=== PATIENT | female | born 1955 | race Caucasian/White ===

== ENCOUNTER 2020-12-31 07:16 | Outpatient (CLI) | payer MEDICARE, SELFPAY ==
[2020-12-31 18:26] LABS: Basophils Absolute Auto 0.1 K/mm3 (0.0-0.1); Basophils Percent Auto 0.6 % (0.2-1.2); Eosinophils Absolute Auto 0.5 K/mm3 (0-0.3); Eosinophils Percent Auto 4.9 % (0-4.4); Hematocrit 41.5 % (37.0-47.0); Hemoglobin 13.1 g/dL (12.0-15.0); Immature Granulocyte Absolute 0.06 K/mm3 (0.00-0.031); Immature Granulocyte Percent A 0.6 % (0-0.5); Lymphocytes Absolute Auto 3.38 K/mm3 (0.9-3.2); Lymphocytes Percent Auto 31.6 % (18.3-44.2); Mean Corpuscular HGB Conc 31.6 g/dl (32-36); Mean Corpuscular Volume 101.5 fl (80-100); Mean Platelet Volume 10.6 fl (7.4-10.4); Monocytes Absolute Auto 0.8 K/mm3 (0.1-0.6); Monocytes Percent Auto 7.1 % (2.6-8.5); Neutrophils Absolute Auto 5.9 K/mm3 (1.3-6.7); Neutrophils Percent Auto 55.2 % (45.5-73.1); Platelet Count Result 436 k/mm3 (150-375); Red Blood Count 4.09 M/mm3 (4.2-5.4); Red Cell Distribution Width 13.5 % (11.5-14.5); White Blood Count 10.7 K/mm3 (4.5-10.0)
[2020-12-31 19:18] LABS: Alanine Aminotransferase 25 U/L (4-35); Albumin Level 3.4 g/dL (3.5-5.1); Alkaline Phosphatase 130 U/L (38-126); Amylase 67 U/L (30-110); Anion Gap 6 mmol/L (8-16); Aspartate Amino Transferase 23 U/L (14-36); Bilirubin,Total < 0.1 mg/dL (0.2-1.3); Blood Urea Nitrogen 13 mg/dL (7-17); Calcium 8.9 mg/dL (8.4-10.2); Carbon Dioxide 27 mmol/L (22-30); Chloride 101 mmol/L (98-107); Cholesterol 195 mg/dL (0-200); Estimated Glomerular Filt Rate > 60; Glucose 100 mg/dL (65-110); HDL Direct 53 mg/dL; Lipase 107 U/L (23-300); Potassium 4.2 mmol/L (3.4-5.0); Sodium 134 mmol/L (137-145); Triglycerides 212 mg/dL (<150)
[2020-12-31 19:29] LABS: LDL Cholesterol Direct 89 mg/dL
== END 2020-12-31 07:17 | disposition home or self-care (01) ==
PROVIDERS: PCP Family Medicine; Visit Provider Family Medicine
DX: K86.1 Other chronic pancreatitis (principal); M79.7 Fibromyalgia; F17.210 Nicotine dependence, cigarettes, uncomplicated
CPT/HCPCS: 36415; 80053; 80061; 82150; 83690; 85025

== ENCOUNTER → 2021-01-09 13:29 | Outpatient (CLI) | payer MEDICARE, SELFPAY ==
--- NOTE | ~2021-01-09 | MM_ITS ---
EXAMINATION: MM screening nahum BI w amaris HISTORY: Screening TECHNIQUE: Craniocaudal and mediolateral oblique 3-D tomosynthesis images were obtained and synthetic 2-D images were generated. CAD analysis was submitted and interpreted. COMPARISON: No prior mammogram is available for comparison at this institution. BREAST PARENCHYMAL COMPOSITION: Breast composed of scattered areas of fibroglandular density. FINDINGS: There is a mass in the upper outer quadrant of the right breast posteriorly. There is a lef t periareolar mass containing calcifications. There are no suspicious areas of architectural distorti on. IMPRESSION: 1. Bilateral breast masses. 2. Additional spot compression and mediolateral views with possible follow-up breast ultrasound recom mended. BI-RADS CATEGORY 0 - INCOMPLETE STUDY, NEED ADDITIONAL IMAGING EVALUATION. Reviewed, dictated and finalized at location A. IMPRESSION: 1. Bilateral breast masses. 2. Additional spot compression and mediolateral views with possible follow-up b reast ultrasound recommended. BI-RADS CATEGORY 0 - INCOMPLETE STUDY, NEED ADDITIONAL IMAGING EVALUATION.
--- NOTE | ~2021-01-09 | CT_ITS ---
EXAMINATION: CT abdomen wo con DATE: 01/09/2021 13:51 INDICATION: Other chronic pancreatitis. TECHNIQUE: Computed tomography (CT) of the abdomen was performed without intravenous contrast. Automa norman exposure control and iterative reconstruction technique were employed. The dose-length product wa s 558.23 mGy-cm. COMPARISON: None. FINDINGS: The visualized portions of the lung bases demonstrate mild atelectasis. There are pneumatoc eles in right lower lobe and lingula. No pleural effusion. The heart size is normal. No pericardial e ffusion. There is moderate intrahepatic biliary duct dilatation. There are changes of cholecystectomy . The common duct is dilated to 14 mm. The pancreas, adrenal glands, and kidneys are normal. There ar e no dilated loops of bowel. There are surgical clips in the periappendiceal region. There is mild me senteric lymphadenopathy on the right. No pleural effusion. There is severe lumbar spondylosis. IMPRESSION: 1. Moderate intrahepatic and extrahepatic biliary duct dilatation status post cholecystectomy. 2. Mild mesenteric lymphadenopathy, likely reactive. Reviewed, dictated and finalized at location A. IMPRESSION: 1. Moderate intrahepatic and extrahepatic biliary duct dilatation status post c holecystectomy. 2. Mild mesenteric lymphadenopathy, likely reactive.
== END ==
PROVIDERS: PCP Family Medicine; Visit Provider Family Medicine
DX: Z12.31 Encounter for screening mammogram for malignant neoplasm of breast (principal); R92.8 Other abnormal and inconclusive findings on diagnostic imaging of breast; K86.1 Other chronic pancreatitis; R59.9 Enlarged lymph nodes, unspecified; Z12.39 Encounter for other screening for malignant neoplasm of breast; Z90.49 Acquired absence of other specified parts of digestive tract
CPT/HCPCS: 74150; 77063; 77067

== ENCOUNTER 2021-01-30 09:04 | Outpatient (CLI) | payer MEDICARE, SELFPAY ==
[2021-01-30 19:11] LABS: Anion Gap 8 mmol/L (8-16); Blood Urea Nitrogen 14 mg/dL (7-17); Calcium 9.2 mg/dL (8.4-10.2); Carbon Dioxide 27 mmol/L (22-30); Chloride 105 mmol/L (98-107); Estimated Glomerular Filt Rate > 60; Glucose 120 mg/dL (65-110); Potassium 4.6 mmol/L (3.4-5.0); Sodium 140 mmol/L (137-145)
== END 2021-01-30 09:05 | disposition home or self-care (01) ==
LOC: ANHBWCLAB 09:06
PROVIDERS: PCP Family Medicine; Visit Provider Family Medicine
DX: E87.1 Hypo-osmolality and hyponatremia (principal)
CPT/HCPCS: 36415; 80048

== ENCOUNTER → 2021-02-24 08:07 | Outpatient (CLI) | payer MEDICARE, SELFPAY ==
--- NOTE | ~2021-02-24 | MMUS_ITS ---
EXAMINATION: MM diagnostic nahum LT w amaris, US breast LT limited HISTORY: 9 mm subcutaneous mass with calcifications reported in lower inner quadrant of left breast TECHNIQUE: Additional 3-D tomosynthesis images of the left breast were performed and synthetic 2-D im ages were generated. Magnification views of the left breast. CAD analysis was submitted and interpret ed. High resolution lower inner quadrant left breast ultrasound was performed. COMPARISON: 01/09/2021, 11/23/2019, 05/25/2018 02/24/2017 bilateral digital screening mammogram examinati ons FINDINGS: MAMMOGRAPHIC FINDINGS: An approximately 5 x 9 mm circumscribed opacity with calcifications is confirmed anteriorly in the rubio bcutaneous area of the lower inner quadrant near the nipple. ULTRASOUND: A subcutaneous 5.4 x 9.8 mm parallel oval circumscribed mass with calcifications is confirmed at 8:00 0.5 cm from the nipple. This has increased in size compared to prior examinations dating back to 7. Biopsy is therefore recommended. IMPRESSION: 1. Increased size of circumscribed mass with calcifications at 8:00 0.5 cm from the nipple, currently measuring up to 9.8 mm 2. Ultrasound-guided biopsy is recommended BI-RADS category 4, suspicious findings. Dr. Riggs telephoned the report and ultrasound guided biopsy recommendation on 02/24/2021 [address] Tong Riggs's voicemail. Reviewed, dictated and finalized at location A. IMPRESSION: 1. Increased size of circumscribed mass with calcifications at 8:00 0.5 cm from the nipple, currently measuring up to 9.8 mm 2. Ultrasound-guided biopsy is recommended BI-RADS category 4, suspicious findings. Dr. Riggs telephoned the report and ultrasound guided biopsy recommendation on at [address] Tong Riggs's voicemail.
== END ==
PROVIDERS: PCP Family Medicine; Visit Provider Family Medicine
DX: N63.20 Unspecified lump in the left breast, unspecified quadrant (principal); R92.8 Other abnormal and inconclusive findings on diagnostic imaging of breast
CPT/HCPCS: 76642; 77061; 77065; G0279

== ENCOUNTER 2021-03-12 08:42 | Outpatient (CLI) | payer MEDICARE, SELFPAY ==
--- NOTE | ~2021-03-12 | MMUS_ITS ---
US breast biopsy LT w image, MM post biopsy invasive LT EXAMINATION: US GUIDED NEEDLE BIOPSY WITH VAC UUM ASSISTANCE DATE: 03/12/2021 10:25 CDT INDICATION: Left breast mass. Ultrasound-guided core biopsy is requested to evaluate for malignancy. TECHNIQUE AND FINDINGS: The risks and potential benefits of the procedure were discussed with the patient, and written inform ed consent was obtained. After sterile preparation of the left breast, 1% lidocaine was utilized for local anesthesia. 1% lidocaine with epinephrine was used for deep anesthesia. A 10G vacuum-assisted biopsy gun needle was advanced through to the outer edge of the region of inter est from a superior approach utilizing sonographic guidance. A total of 4 tissue core samples were o btained through the lesion. An Inrad tissue marker clip was then placed at the biopsy site. Hemostas is was achieved. The patient tolerated procedure well and there was no evidence of immediate complication. The patien t was given verbal instructions partly is from the department. Left breast mammograms to document t issue marker clip placement. The tissue samples were submitted to surgical pathology for histologic a nalysis. IMPRESSION: 1. Successful ultrasound-guided vacuum-assisted biopsy of left breast mass with tissue marker placem ent. Please refer to pathology report for histologic analysis. Reviewed, dictated and finalized at location A. IMPRESSION: 1. Successful ultrasound-guided vacuum-assisted biopsy of left breast mass wit h tissue marker placement. Please refer to pathology report for histologic anal ysis.
== END 2021-03-12 08:43 | disposition home or self-care (01) ==
LOC: ANHIMG 08:45
PROVIDERS: PCP Family Medicine; Visit Provider Surgery
DX: R92.8 Other abnormal and inconclusive findings on diagnostic imaging of breast (principal); C50.912 Malignant neoplasm of unspecified site of left female breast; Z17.0 Estrogen receptor positive status [ER+]
CPT/HCPCS: 19083; 88305; 88342; A4648

== ENCOUNTER 2021-11-17 09:35 | Outpatient (CLI) | payer MEDICARE, SELFPAY ==
--- NOTE | ~2021-11-17 | XR_ITS ---
XR foot LT standing 2V DATE: 11/17/2021 11:37 INDICATION: Polyarticular arthritis TECHNIQUE: AP and lateral views COMPARISON: None FINDINGS: Prominent hallux valgus and bunion deformity. There is mild osteophyte is at the first meta tarsophalangeal joint. There is osteoarthritic change at some of the tarsometatarsal and interphalang eal joints. Mild plantar and posterior calcaneal enthesopathy. Osteopenia. IMPRESSION: Plantar and posterior calcaneal enthesopathy Polyarticular osteoarthritis Osteopenia. Reviewed, dictated and finalized at location A.
--- NOTE | ~2021-11-17 | XR_ITS ---
XR lumbar spine min 4V DATE: 11/17/2021 11:37 INDICATION: Back pain TECHNIQUE: AP, lateral, bilateral oblique views and coned lateral lumbosacral view COMPARISON: None FINDINGS: There is osteopenia. There is degenerative spurring of the lower thoracic spine. There is prominent degenerative change at the apophyseal joints in the mid and lower lumbar area with associated 2.4 mm minimal grade 1 anterolisthesis at L3-4 and 6.7 mm grade 1 anterolisthesis at L4-5 . There is severe degenerative disc disease at L4-5 and L5-S1. The sacroiliac joints are intact. Surgical clips, right upper quadrant, likely due to cholecystectomy. Surgical clips are noted in the right lower quadrant. IMPRESSION: Degenerative changes apophyseal joints with grade 1 anterolisthesis at L3-4 and L4-5 Severe degenerative disc disease at L4-5 and L5-S1 Reviewed, dictated and finalized at location A.
--- NOTE | ~2021-11-17 | XR_ITS ---
EXAMINATION: HAND-MALATHI ARTHRITIS 3+VIEWS DATE: 11/17/2021 11:37 INDICATION: Polyarticular osteoarthritis TECHNIQUE: Posteroanterior, lateral, and oblique views of the left and of the right hands as well as a ballcatchers view of both hands were obtained. COMPARISON: None. FINDINGS: Alignment is normal at both hands. No fracture. Relatively symmetric pattern of polyarticular osteoar thritis. This is severe with central erosions with gullwing configuration at the distal interphalange al joints of both hands. Additional severe osteoarthritis at the bilateral first carpometacarpal join ts. Mild to moderate osteoarthritis at the remaining joints in both hands. There are few degenerative subchondral cysts with thin sclerotic margins and most prominent at the right lunate and at the base of the first metacarpals. Soft tissues are unremarkable. IMPRESSION: 1. Polyarticular osteoarthritis including severe osteoarthritis at the bilateral first carpometacarpa l joints and erosive osteoarthritis at the distal interphalangeal joints of both hands. Reviewed, dictated and finalized at location B. IMPRESSION: 1. Polyarticular osteoarthritis including severe osteoarthritis at the bilatera l first carpometacarpal joints and erosive osteoarthritis at the distal interph alangeal joints of both hands.
--- NOTE | ~2021-11-17 | XR_ITS ---
XR sacroiliac joints min 3V DATE: 11/17/2021 11:37 INDICATION: Arthritis. Pain. TECHNIQUE: AP and bilateral oblique views COMPARISON: None FINDINGS: There is osteopenia. There is normal alignment at the pubic symphysis and sacroiliac joints . No fracture or dislocation is detected. No erosive change or ankylosis. IMPRESSION: Osteopenia Reviewed, dictated and finalized at [facility]. Reviewed, dictated and finalized at location A. IMPRESSION: Osteopenia
--- NOTE | ~2021-11-17 | XR_ITS ---
XR foot RT standing 2V DATE: 11/17/2021 11:37 INDICATION: Polyarthritis. Foot pain. TECHNIQUE: AP and lateral views COMPARISON: None FINDINGS: There is osteopenia. There is hallux valgus and bunion deformity. There is mild osteophyte is at the first metatarsophalan geal joint and more prominent osteoarthritic change of the tarsometatarsal, metatarsophalangeal and s ome interphalangeal joints. No erosive change is noted. There is plantar and posterior calcaneal enthesopathy. IMPRESSION: Polyarticular osteoarthritis Hallux valgus and bunion deformity Plantar and posterior calcaneal enthesopathy Reviewed, dictated and finalized at location A.
--- NOTE | ~2021-11-17 | XR_ITS ---
XR knee LT min 4V DATE: 11/17/2021 11:37 INDICATION: Left knee pain. Probably osteoarthritis TECHNIQUE: [place] and standing AP, PA and lateral views COMPARISON: None FINDINGS: There is osteopenia. No fracture or dislocation, periosteal reaction or bone destruction. N o radiopaque intra-articular loose body or chondrocalcinosis. Joint spaces are relatively preserved. IMPRESSION: Osteopenia Reviewed, dictated and finalized at location A. IMPRESSION: Osteopenia
[2021-11-17 20:44] LABS: Rheumatoid Factor > 120.0 IU/ML (<12)
[2021-11-19 22:21] LABS: Anti Cyclic Citrullinated Pept <16 Units (<20)
[2021-11-22 11:46] LABS: ANCA Screen Negative (Negative); Myeloperoxidase Ab <1.0 AI (<1.0); Proteinase-3 Ab <1.0 AI (<1.0); S cerevisiae Ab (IgA) 6.5 U (<=20.0); S cerevisiae Ab (IgG) 17.2 U (<=20.0)
== END 2021-11-17 09:36 | disposition home or self-care (01) ==
PROVIDERS: PCP Family Medicine; Visit Provider Internal Medicine
DX: M79.7 Fibromyalgia (principal); Z71.89 Other specified counseling; Z79.899 Other long term (current) drug therapy; M19.041 Primary osteoarthritis, right hand; M19.042 Primary osteoarthritis, left hand; M19.071 Primary osteoarthritis, right ankle and foot; M20.11 Hallux valgus (acquired), right foot; M77.31 Calcaneal spur, right foot; M19.072 Primary osteoarthritis, left ankle and foot; M85.872 Other specified disorders of bone density and structure, left ankle and foot; M77.32 Calcaneal spur, left foot; M85.862 Other specified disorders of bone density and structure, left lower leg; M53.3 Sacrococcygeal disorders, not elsewhere classified; M85.88 Other specified disorders of bone density and structure, other site; M51.36 Other intervertebral disc degeneration, lumbar region; M51.37 Other intervertebral disc degeneration, lumbosacral region
CPT/HCPCS: 36415; 72110; 72202; 73130; 73564; 73620; 86036; 86038; 86200; 86430; 86671

== ENCOUNTER → 2022-07-30 08:34 | Outpatient (CLI) | payer MEDICARE, SELFPAY ==
--- NOTE | ~2022-07-30 | XR_ITS ---
Cervical Spine: AP, lateral, open-mouth views Clinical History: Pain Findings: The normal lordotic curve is maintained. No acute fracture or subluxation evident. There is posterior hardware at the left side of the C4, C6, and C7 levels. There is severe degenerative disc narrowing throughout the cervical spine, with anterior marginal osteophytes present. Mild facet joint degenerative changes are present throughout the cervical spine. Pre-vertebral soft tissues are unrem arkable. Impression: No acute fracture or subluxation evident. Consider CT for more sensitive evaluation as indicated. Left posterior orthopedic hardware at the C4, C6, and C7 levels. Correlate with surgical history. Advanced degenerative spondylosis, as above. Reviewed, dictated and finalized at [facility]. Impression: No acute fracture or subluxation evident. Consider CT for more sensitive evalua tion as indicated. Left posterior orthopedic hardware at the C4, C6, and C7 levels. Correlate with surgical history. Advanced degenerative spondylosis, as above.
--- NOTE | ~2022-07-30 | CT_ITS ---
Non-contrast Head CT History: Head trauma Technique: Axial non-contrast imaging of the brain was performed. Dose reduction technique was used on this scan by utilizing automated exposure control and iterative reconstruction technique. The dose -length product (DLP) was 599.57 mGy-cm. Findings: There is no evidence of intracranial hemorrhage, mass lesion, or acute infarct. Brain par enchyma appears normal. The ventricles and subarachnoid spaces are normal in size. The calvarium ap pears normal. The visualized paranasal sinuses and mastoid air cells are clear. Impression: No significant abnormality seen. Reviewed, dictated and finalized at location . Impression: No significant abnormality seen.
== END ==
PROVIDERS: PCP Family Medicine; Visit Provider Family Medicine
DX: S09.90XA Unspecified injury of head, initial encounter (principal); X58.XXXA Exposure to other specified factors, initial encounter; M47.892 Other spondylosis, cervical region
CPT/HCPCS: 70450; 72040

== ENCOUNTER 2023-08-16 08:07 | Outpatient (CLI) | payer MEDICARE, SELFPAY ==
[2023-08-16 21:38] LABS: Alanine Aminotransferase 16 U/L (6-35); Albumin Level 4.1 g/dL (3.5-5.1); Alkaline Phosphatase 45 U/L (38-126); Anion Gap 3 mmol/L (4-12); Aspartate Amino Transferase 50 U/L (14-36); Bilirubin,Total 0.6 mg/dL (0.2-1.3); Blood Urea Nitrogen 12 mg/dL (7-17); Calcium 8.9 mg/dL (8.4-10.2); Carbon Dioxide 29 mmol/L (22-30); Chloride 106 mmol/L (98-107); Cholesterol 158 mg/dL (0-200); Estimated Glomerular Filt Rate > 60; Glucose 96 mg/dL (65-110); HDL Direct 53 mg/dL; Potassium 4.1 mmol/L (3.4-5.0); Sodium 138 mmol/L (137-145); Triglycerides 198 mg/dL (<150)
[2023-08-16 21:49] LABS: LDL Cholesterol Direct 74 mg/dL
== END 2023-08-16 08:08 | disposition home or self-care (01) ==
PROVIDERS: PCP Nurse Practitioner Adult Health; Visit Provider Nurse Practitioner Adult Health
DX: E78.5 Hyperlipidemia, unspecified (principal)
CPT/HCPCS: 36415; 80053; 80061

== ENCOUNTER 2023-08-18 09:53 | Outpatient (CLI) | payer MEDICARE, SELFPAY ==
--- NOTE | ~2023-08-18 | XR_ITS ---
AP and lateral views of the left hip Clinical history: Pain Findings: No acute fracture or dislocation is seen. Osseous alignment is anatomic. There is mild dege nerative change of the left hip joint. Soft tissues are unremarkable. Impression: Mild degenerative change of the left hip joint. Reviewed, dictated and finalized at location . Impression: Mild degenerative change of the left hip joint.
== END 2023-08-18 09:54 | disposition home or self-care (01) ==
LOC: ANHBWCIMG 09:54
PROVIDERS: PCP Nurse Practitioner Adult Health; Visit Provider Nurse Practitioner Adult Health
DX: M25.552 Pain in left hip (principal)
CPT/HCPCS: 73502

== ENCOUNTER 2024-10-18 08:15 | Outpatient (CLI) | payer MEDICARE, SELFPAY ==
--- NOTE | ~2024-10-18 | XR_ITS ---
Thoracic spine: Clinical Indication: Back pain AP and lateral views were performed. No fracture is seen. There is normal alignment of the vertebrae. There is multilevel moderate to adv anced degenerative disc narrowing throughout the thoracic spine, especially at the mid thoracic spine . Paravertebral soft tissues appear normal. Impression: Multilevel moderate to advanced degenerative disc narrowing throughout the thoracic spine, especially the mid thoracic spine. Reviewed, dictated and finalized at location . Impression: Multilevel moderate to advanced degenerative disc narrowing throughout the thor acic spine, especially the mid thoracic spine.
--- NOTE | ~2024-10-18 | XR_ITS ---
XR abdomen/kub 1V 10/18/2024 08:38 INDICATION: Chronic back pain TECHNIQUE: KUB COMPARISON: None FINDINGS: Bowel gas pattern is normal. Moderate colonic fecal loading. There is no evidence of free a ir, mass, organomegaly, ascites or obstruction. No abnormal calculi are seen. The bones appear inta ct. There is a left total hip arthroplasty. There are cholecystectomy clips. There are surgical clips in the right pelvis. IMPRESSION: 1: No acute abdominal abnormality identified. Reviewed, dictated and finalized at location B.
--- NOTE | ~2024-10-18 | XR_ITS ---
Lumbosacral Spine: AP and lateral views Clinical History: Pain COMPARISON: 11/17/2021 Findings: No fracture evident. There is 8 mm anterolisthesis of L3 over L4. There is 10 mm anterolist hesis of L4 over L5. There is severe degenerative disc narrowing at L4-L5 and L5-S1. There is severe facet arthropathy of the lumbar spine. The sacroiliac joints are normally outlined. Impression: Severe degenerative spondylosis, especially from L3 through S1, as above. 8 mm anterolisthesis of L3 over L4. 10 mm anterolisthesis of L4 over L5. Reviewed, dictated and finalized at location M. Impression: Severe degenerative spondylosis, especially from L3 through S1, as above. 8 mm anterolisthesis of L3 over L4. 10 mm anterolisthesis of L4 over L5.
--- OUTSIDE RECORDS SUMMARY | 2024-10-18 08:29 | XMS_ITS | Referral Summary ---
Author Organization [facility] Address [address] [place] [address] Care Team Providers Care Braille Translator Name Role Phone Tong Riggs MD Primary Care Provider [phone] Matthieu Fortune MD PhD Unavailable Leona Suazo MD Unavailable Kunal Ramos MD Unavailable Carlos Crook MD Unavailable [phone] Encounters Date Type Department Care Team Description 10/17/2024 1:00 PM CDT Office Visit [facility] Gastroenterology [address] [place] [address] Medical Office Building [address] [place] [address] Geraldine Lock PA Heartburn (Primary Dx); Gastroesophageal reflux disease, unspecified whether esophagitis present; Chronic gastric ulcer without hemorrhage and without perforation; Constipation, unspecified constipation type 10/08/2024 Results Follow-Up [facility] [address] [place] [address] Eloise Valentin, IDA Urine culture Urine, clean voided 10/07/2024 8:32 AM CDT - 10/07/2024 11:59 PM CDT Hospital Encounter [address] [id number] UTI symptoms Discharge Disposition: Discharge to home or self care 10/07/2024 8:30 AM CDT Office Visit [facility] [address] [place] [address] Jerri Juarez NP UTI symptoms (Primary Dx) from Last 3 Months Allergies Active Allergy Reactions Criticality Noted Date Comments Iodinated Contrast Media Anaphylaxis High 11/09/2023 Iodine Anaphylaxis High 06/29/2019 Penicillins Anaphylaxis High 01/15/2021 Sulfa (Sulfonamide Antibiotics) Hives Medium 12/2020 Medications ondansetron ODT (ZOFRAN-ODT) 8 mg disintegrating tablet DISSOLVE ONE TABLET ON TONGUE THREE TIMES A DAY NEEDED 12/25/[address] (PROTONIX) 40 mg EC tablet Take 1 tablet (40 mg total) by mouth 2 (two) times a day 11/04/19 21 Active denosumab (PROLIA) 60 mg/mL syringe every 6 (six) months 12/09/19 22 Active famotidine (PEPCID) 20 mg tablet TAKE 1 TABLET BY MOUTH AT MIDNIGHT FOR REFLUX TYPE SYMPTOMS 03/09/20 22 Active bisacodyL (DULCOLAX) 10 mg suppository Insert 1 suppository (10 mg total) into the rectum daily as needed for constipation Active tamoxifen (NOLVADEX) 20 mg tablet Take 1 tablet (20 mg total) by mouth daily Active prochlorperazine (COMPAZINE) 10 mg tablet Take 1 tablet (10 mg total) by mouth every 8 (eight) hours as needed for nausea or vomiting Active atorvastatin (LIPITOR) 10 mg tablet Take 1 tablet (10 mg total) by mouth nightly Active pregabalin (LYRICA) 75 mg capsule Take 1 capsule (75 mg total) by mouth 3 (three) times a day Active multivitamin tablet Take 1 tablet by mouth daily Active ascorbic acid (vitamin C) 1,000 mg tablet Take 1 tablet (1,000 mg total) by mouth daily Active calcium-magnesium- zinc 333-133-5 mg tablet Take 1 tablet by mouth 2 (two) times a day Active cholecalciferol (VITAMIN D-3) 5,000 unit tablet Take 1 tablet (5,000 Units total) by mouth daily Active vitamins A,C,E-bbsb-xlwoiv (ICAPS) 4,296 mcg-226 mg-90 mg capsule Take 1 capsule by mouth daily Active senna-docusate (PERICOLACE) 8.6-50 mg Take 1 tablet by mouth 2 (two) times a day as needed for constipation 60 tablet 2 02/16/20 24 Active adalimumab (Humira,CF,) 20 mg/0.2 mL syringe kit 08/31/19 25 Active methotrexate 2.5 mg tablet TAKE 3 (THREE) TABLETS BY MOUTH EVERY 7 DAYS Active predniSONE (DELTASONE) 10 mg tablet TAKE 2 (TWO) TABLETS BY MOUTH ONCE DAILY FOR 7 DAYS, THEN 1 (ONE) TABLET ONCE DAILY FOR 7 DAYS. 08/03/19 25 Active predniSONE (DELTASONE) 20 mg tablet 40 MG (2 X 20 MG) ORALLY DAILY 10/14/19 25 Active predniSONE (DELTASONE) 5 mg tablet 09/23/19 25 Active tiZANidine (ZANAFLEX) 4 mg tablet Take 1 tablet (4 mg total) by mouth 2 (two) times a day as needed 11/01/19 21 025 Discontin ued(Thera py completed ) acidophilus-pectin , citrus 100 million cell-10 mg capsule Take 1 capsule by mouth daily 025 Discontin ued(Thera py completed ) oxyCODONE-acetamin ophen (PERCOCET) 5-325 mg per tablet Take 1-2 tablets by mouth every 4 (four) hours as needed for pain 40 tablet 02/16/20 24 025 Discontin ued(Thera py completed ) Active Problems Problem Noted Date Diagnosed Date Chronic gastric ulcer withou t hemorrhage and without perforation 04/18/2024 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 04/10/2024 Gastroesophageal reflux disease 01/18/2024 Anemia 01/18/2024 Vitamin D deficiency, unspecified 06/09/2022 Personal history of colonic polyps 03/24/2022 Overview (03/24/2022): Added automatically from request for surgery [id number] Nausea 03/24/2022 Overview (03/25/2022): Added automatically from request for surgery [id number] Heartburn 03/24/2022 Overview (03/25/2022): Added automatically from request for surgery [id number] Osteopenia 11/28/2021 Malignant neoplasm of lower- inner quadrant of left breast in female, estrogen receptor positive 07/30/2021 Cancer Staging:Pathologic stage from 07/30/2021:Stage IA(pT1b, pN0(sn), cM0, G2, ER+, IL+, HER2-, Oncotype DX score: 25) - Signed by Matthieu Fortune MD PhD on 07/30/2021 Pathologic stage from 11/23/2022: pN1a, cM0, ER+, IL+, HER2- - Signed by Matthieu Fortune MD PhD on 05/27/2023 Adenomatous polyp of ascending colon 02/14/2021 Overview (02/14/2021): Added automatically from request for surgery [id number] Encounter for screening colonoscopy 01/21/2021 Overview (01/21/2021): Added automatically from request for surgery [id number] Acute pancreatitis without infection or necrosis 01/15/2021 Overview (01/15/2021): Added automatically from request for surgery [id number] Resolved Problems Problem Noted Date Diagnosed Date Resolved Date Primary osteoarthritis of left hip 02/07/2024 04/10/2024 Social History Tobacco Use Types Packs/Day Years Used Date Smoking Tobacco: Former Cigarettes 0.3 49 Q uit: 01/09/2024 Smokeless Tobacco: Never Tobacco Cessation:Counseling Given: Not Answered AUDIT-C Answer Date Recorded Q1: How often do you have a drink containing alcohol? Never 06/13/2024 Q2: How many drinks containi ng alcohol do you have on a typical day when you are drinking? Patient does not drink Q3: How often do you have si x or more drinks on one occasion? Never 06/13/2024 Personal Safety Answer Date Recorded Have you ever been in or are you currently in a harmful physical or emotional relationship or is someone making you feel afraid or unsafe? Denies 06/15/2024 Comments No Sex and Gender Information Value Date Recorded Sex Assigned at Not on file Legal Sex Female 2:25 PM CDT Gender Identity Female 03/12/2021 12:38 PM CDT Sexual Orientation Straight 07/21/2021 2: 12 PM CDT Last Filed Vital Signs Vital Sign Reading Time Taken Comments Blood Pressure 131/83 10/17/2024 1:02 PM CDT Pulse 97 10/17/2024 1:02 PM CDT Temperature 36.8 C (98.2 F) 10/17/2024 1:02 PM CDT Respiratory Rate 18 10/07/2024 8:25 AM CDT Oxygen Saturation 95% 10/17/2024 1:02 PM CDT Inhaled Oxygen Concentration - - Weight 96.2 kg (212 lb) 10/17/2024 1:02 PM CDT Height 167.6 cm (5' 6) 10/17/2024 1:02 PM CDT Body Mass Index 34.22 10/17/2024 1:02 PM CDT Plan of Treatment Not on file Medical Devices Implanted Type Area Space Operations Device Identifier Shelf Expiration Date Model / Serial / Lot [employer] Shell Acetabular Hip Porous 3 Hole Coated Emphasys 50mm Titanium [id number] - [id number] Implanted:Qty: 1 on 02/16/2024 by Carlos Crook MD at [facility] Left: Hip [employer] [id number] 12/07/2033 [id number] / / [id number] [employer] Liner Acetabular Hip Standard Emphasys Aox 33y06ve Polyethylene [id number] - [id number] Implanted:Qty: 1 on 02/16/2024 by Carlos Crook MD at [facility] Left: Hip [employer] [id number] 12/07/2028 [id number] / / [id number] [employer] Actis 105mm Collar Hip 5 High Offset Stem Femoral [id number] - [id number] Implanted:Qty: 1 on 02/16/2024 by Carlos Crook MD at [facility] Left: Hip [employer] [id number] 11/06/2033 [id number] / / [id number] [employer] Articul/[place]ilton 36mm Cementless Hip +1.5mm 04/22 Taper Head Femoral Latex Free [id number] - [id number] Implanted:Qty: 1 on 02/16/2024 by Carlos Crook MD at [facility] Left: Hip [employer] [id number] 10/07/2028 [id number] / / [id number] Procedures Procedure Name Priority Date/Time Associated Diagnosis Comments POCT URINALYSIS DIPSTICK Routine 10/07/2024 8:39 AM CDT UTI symptoms URINE CULTURE Routine 10/07/2024 8:32 AM CDT UTI symptoms COLONOSCOPY 03/30/2022 1:45 PM [employer]ODUCT [employer]NAG[employer] from Last 3 Months or Most Recently Relevant to Health Maintenance Results * POCT urinalysis dipstick (10/07/2024 8:39 AM CDT) Color, Urine, POC Yellow Clarity, ur, POC Clear Clear Glucose, ur, POC Negative Negative Bilirubin, ur, POC Negative Negative Ketones, ur, POC Negative Negative Specific Ortley, POC 1.005 1.003 - 1.030 Blood, ur, POC Negative Negative pH, ur, POC 6.0 5.0 - 8.0 Protein, ur, POC Negative Negative Urobilinogen, urine, POC 0.2 0.2 - 1.0 mg/dL Nitrite, ur, POC Negative Negative Leukocytes, ur, POC Negative Negative Lot Number [id number] Urine 10/07/2024 8:39 AM CDT Jerri Juarez PLAN NURSE POINT OF CARE TEST BARTOLOME ALMEIDA Final Result * Urine culture Urine, clean voided (10/07/2024 8:32 AM CDT) Report Final Report: Less than 100,000 colonies/mL (clinically insignificant growth based on current clinical standards) Comment:Testing performed by : [facility], [address] [facility], [place]., [address] Organism (CLINICALLY INSIGNIFICANT GROWTH ADITYA Urine, clean voided 10/07/2024 8:32 AM CDT 10/07/2024 6:23 PM CDT Narrative ADITYA - 10/08/2024 7:25 PM CDT Testing performed by [facility] ([phone]) us Jerri Hassan Larry PLAN NURSE LAB MICROBIOLOGY - GENE RAL ORDERABLES Final Result ADITYA [address] Department of Laboratories [place], [place] [id number] * COLONOSCOPY (03/30/2022 1:45 PM PRODUCT MANAGEMENT INTERNSHIP) Anatomical Region Laterality Modality Other Narrative Procedure Note Yeyo Hu MD - 03/30/2022 1:45 PM CST ENDOSCOPY LAB Patient Name: Latanya Dangelo Procedure Date: 03/30/2022 1:45 PM Admit Type: Outpatient Room: [facility] Date of : 1955 Instrument Name: [id number] Gender: Female Note Status: Finalized Procedure: Colonoscopy Indications: High risk colon cancer surveillance: Personalhistory of colonic polyps Providers: Yeyo Hu M.D. Referring MD: Tong Riggs M.D. Medicines: Monitored Anesthesia Care Complications: No immediate complications. Estimated Blood Loss: Estimated blood loss: none. Procedure: Pre-Anesthesia Assessment: - The risks and benefits of the procedure and the sedation options and risks were discussed with the patient. All questions were answered and informed consent was obtained. - Immediately prior to administration ofmedications, the patient was re-assessed for adequacy to receive sedatives. The benefits, risks and alternatives of theprocedure and sedation were discussed and informed consentwas obtained. All questions were answered. Please referto the signed informed consent document in the medical record. The scope was passed under direct vision.The Colonoscope was introduced through the anus and advanced to the cecum, identified by appendiceal orifice and ileocecal valve. The colonoscopy was performed without difficulty. The patient tolerated the procedure well. The quality of the bowel preparation was good. The bowel preparation usedwas SUPREP via split dose instruction. Findings: The perianal and digital rectal examinations were normal. A small post polypectomy scar was found in the ascending colon. There was no evidence of the previous polyp. The exam was otherwise without abnormality on direct and retroflexion views. Impression: - Post-polypectomy scar in the ascending colon. - The examination was otherwise normal on directand retroflexion views. - No specimens collected. Recommendation: - Return to referring physician as previously scheduled. - Repeat colonoscopy in 3 years for surveillance. Attending Participation: I personally performed the entire procedure. Electronically signed by Yeyo Hu M.D. Yeyo Hu M.D. 03/30/2022 2:47:08 PM This document was signed electronically. Number of Addenda: 0 Note Initiated On: 03/30/2022 1:45 PM Scope Withdrawal Time: 0 hours 3 minutes 2 seconds Scope In: 2:10:28 PM Scope Out: 2:26:22 PM Yeyo Hu MD ENDOSCOPY PROCEDURES Final Result from Last 3 Months or Most Recently Relevant to Health Maintenance Insurance MEDICARE [facility] MEDICARE SUPPLEMENT MEDICARE COMMERCIAL GENERIC MEDICARE [facility] MEDICARE SUPPLEMENT Advance Directives For more information, please contact: [phone] * Full Code (Latest Code Status on File) Date Activated Date Inactivated Comments 06/15/2024 12:33 PM 06/15/2024 6:55 PM * Full Code Date Activated Date Inactivated Comments 03/23/2024 10:22 AM 03/23/2024 4:23 PM * Full Code Date Activated Date Inactivated Comments 02/16/2024 11:47 AM 02/16/2024 7:47 PM * Full Code Date Activated Date Inactivated Comments 03/30/2022 12:35 PM 03/30/2022 7:18 PM * Full Code Date Activated Date Inactivated Comments 03/17/2021 8:56 AM 03/17/2021 3:05 PM Care Teams Braille Translator Relationship Specialty Start Date End Date Tong Riggs MD PCP - General Family Practice 12/23/20 Matthieu Fortune MD PhD [address] [facility] [place] [address] Radiation Oncologist Radiation Oncology 07/30/21 Leona Suazo MD [address] [facility], [place] [address] Consulting Physician General Surgery 07/30/21 Kunal Ramos MD [address] [address] Referring Physician Internal Medicine 07/30/21 Carlos Crook MD [address] [facility] [address] [address] Surgeon Orthopedic Surgery 02/16/24
--- OUTSIDE RECORDS SUMMARY | 2024-10-18 08:29 | XMS_ITS | Encounter Summary ---
Author Organization [facility] Address [address] [place] [address] Phone Care Team Providers Care Waste Specialist Name Role Phone Tong Riggs MD Primary Care Provider [phone] Matthieu Fortune MD PhD Unavailable Leona Suazo MD Unavailable [phone] Kunal Ramos MD Unavailable Carlos Crook MD Unavailable [phone] Encounter Details Date Type Department Care Team (Late st Contact Info) Description 10/17/2024 1:00 PM CDT Office Visit [facility] G[facility]enterology [address] [place] [address] Medical Office Building [address] [place] [address] Geraldine Lock PA [address] [place] [address] Heartburn (Primary Dx); Gastroesophageal reflux disease, unspecified whether esophagitis present; Chronic gastric ulcer without hemorrhage and without perforation; Constipation, unspecified constipation type Social History Tobacco Use Types Packs/Day Years [...] Orientation Straight 07/21/2021 2: 12 PM CDT documented as of this encounter Last Filed Vital Signs Vital Sign Reading Time Taken Comments Blood Pressure 131/83 10/17/2024 1:02 PM CDT Pulse 97 10/17/2024 1:02 PM CDT Temperature 36.8 C (98.2 F) 10/17/2024 1:02 PM CDT Respiratory Rate - - Oxygen Saturation 95% 10/17/2024 1:02 PM CDT Inhaled Oxygen Concentration - - Weight 96.2 kg (212 lb) 10/17/2024 1:02 PM CDT Height 167.6 cm (5' 6) 10/17/2024 1:02 PM CDT Body Mass Index 34.22 10/17/2024 1:02 PM CDT documented in this encounter Patient Instructions * Patient Instructions* Geraldine Lock PA - 10/17/2024 1:00 PM CDT -You could try taking tammy capsules 500 mg 2-3 times a day as needed. If you tolerate it ok and it helps you can go up to 1000 mg 3 times a day. - You could also try Iberogast which is another herbal supplement. - Try taking the pantoprazole 30 minutes before breakfast and before dinner. If this doesn't help, we will consider switching you to rabeprazole - send us an update in about in a few weeks if you want to do this. - the next step would be to consider repeating the EGD (possibly treating empirically with nystatin), or more likely schedule esophageal manometry with 24-hr pH impedence. documented in this encounter Plan of Treatment Not on file documented as of this encounter Visit Diagnoses Diagnosis Heartburn- Primary Gastroesophageal reflux disease, unspecified whether esophagitis present Chronic gastric ulcer without hemorrhage and without perforation Constipation, unspecified constipation type documented in this encounter Discontinued Medications Medication Sig Discontinue Reason Start Date End Da te acidophilus-pectin, citrus 100 million cell-10 mg capsule Take 1 capsule by mouth daily Therapy completed 10/17/2024 oxyCODONE-acetaminophen (PERCOCET) 5-325 mg per tablet Take 1-2 tablets by mouth every 4 (four) hours as needed for pain Therapy completed 02/16/2024 10/17/2024 tiZANidine (ZANAFLEX) 4 mg tablet Take 1 tablet (4 mg total) by mouth 2 (two) times a day as needed Therapy completed 10/31/2020 10/17/2024 documented as of this encounter Historical Medications * This list may reflect changes made after this encounter. predniSONE (DELTASONE) 5 mg tablet 09/22/2024 predniSONE (DELTASONE) 20 mg tablet 40 MG (2 X 20 MG) ORALLY DAILY 10/13/2024 predniSONE (DELTASONE) 10 mg tablet TAKE 2 (TWO) TABLETS BY MOUTH ONCE DAILY FOR 7 DAYS, THEN 1 (ONE) TABLET ONCE DAILY FOR 7 DAYS. 08/02/2024 methotrexate 2.5 mg tablet TAKE 3 (THREE) TABLETS BY MOUTH EVERY 7 DAYS adalimumab (Humira,CF,) 20 mg/0.2 mL syringe kit 08/30/2024 added in this encounter Care Teams Waste Specialist Relationship Specialty Start Date End Date Tong Riggs MD PCP - General Family Practice 12/23/20 Matthieu Fortune MD PhD [address] [place] [address] Radiation Oncologist Radiation Oncology 07/30/21 Leona Suazo MD [address] [facility], [place] [address] Consulting Physician General Surgery 07/30/21 Kunal Ramos MD [address] [address] Referring Physician Internal Medicine 07/30/21 Carlos Crook MD [address] [facility] [address] [place] [place] [address] Surgeon Orthopedic Surgery 02/16/24 documented as of this encounter
--- OUTSIDE RECORDS SUMMARY | 2024-10-18 08:29 | XMS_ITS | Clinical Summary ---
Author Organization [facility] Address [address] [place] [address] Care Team Providers Care Scroll Saw Operator Name Role Phone Tong Riggs MD Primary Care Provider [phone] Matthieu Fortune MD PhD Unavailable Leona Suazo MD Unavailable Kunal Ramos MD Unavailable Carlos Crook MD Unavailable Allergies Active Allergy Reactions Criticality Noted Date [...] Units total) by mouth daily Active vitamins A,C,Q-cqli-eeodkw (ICAPS) 4,296 mcg-226 mg-90 mg capsule Take [...] (03/24/2022): Added automatically from request for surgery [id number] Nausea 03/24/2022 Overview (03/25/2022): Added automatically from request for surgery [id number] Heartburn 03/24/2022 Overview (03/25/2022): Added automatically from request for surgery [id number] Osteopenia 11/28/2021 Malignant neoplasm of lower- inner quadrant of left breast in female, estrogen receptor positive 07/30/2021 Cancer Staging:Pathologic stage from 07/30/2021:Stage IA(pT1b, pN0(sn), cM0, G2, ER+, OH+, HER2-, Oncotype DX score: 25) - Signed by Matthieu Fortune MD PhD on 07/30/2021 Pathologic stage from 11/23/2022: pN1a, cM0, ER+, OH+, HER2- - Signed by Matthieu Fortune MD PhD on 05/27/2023 Adenomatous polyp of ascending colon 02/14/2021 Overview (02/14/2021): Added automatically from request for surgery [id number] Encounter for screening colonoscopy 01/21/2021 Overview (01/21/2021): Added automatically from request for surgery [id number] Acute pancreatitis without infection or necrosis 01/15/2021 Overview (01/15/2021): Added automatically from request for surgery [id number] Resolved Problems Problem Noted Date Diagnosed Date Resolved Date Primary osteoarthritis of left hip 02/07/2024 04/10/2024 Encounters Date Type Department Care Team Description 10/17/2024 1:00 PM CDT Office Visit [facility] Gastroenterology [facility] Medical Office Building [address] [place] [address] Geraldine Lock PA Heartburn (Primary Dx); Gastroesophageal reflux disease, unspecified whether esophagitis present; Chronic gastric ulcer without hemorrhage and without perforation; Constipation, unspecified constipation type 10/08/2024 Results Follow-Up [facility] [place] [address] [place] [address] Eloise Valentin NP Urine culture Urine, clean voided 10/07/2024 8:32 AM CDT - 10/07/2024 11:59 PM CDT Hospital Encounter [address] [address] UTI symptoms Discharge Disposition: Discharge to home or self care 10/07/2024 8:30 AM CDT Office Visit [facility] Medical [facility] [place] [address] [place] [address] Jerri Juarez NP UTI symptoms (Primary Dx) from Last 3 Months Surgical History Surgery Date Site/Laterality Comments UPPER GASTROINTESTINAL ENDOSCOPY COLONOSCOPY APPENDECTOMY 1982 CHOLECYSTECTOMY 1982 OOPHERECTOMY Right SALPINGECTOMY Left LAMINOPLASTY C3 to C8 BREAST BIOPSY BREAST LUMPECTOMY Left HYSTERECTOMY 1992 BUNIONECTOMY Bilateral CATARACT EXTRACTION Bilateral TOTAL HIP ARTHROPLASTY 02/16/2024 Left JOINT REPLACEMENT 02/16/2024 left hip SPINE SURGERY [id number] CATARACT EXTRACTION [id number] Medical History Medical History Date Comments Stress fracture Left foot GERD (gastroesophageal reflux disease) [id number] Cataract [id number] Pancreatitis 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 lower- inner quadrant of left breast in female, estrogen receptor positive (HCC) 07/30/2021 History of radiation therapy Gastroparesis Fibromyalgia Osteoarthritis Spinal stenosis PONV (postoperative nausea and vomiting) High triglycerides Breast CA (HCC) left Anemia Chronic constipation Multiple gastric ulcers Cholelithiasis Osteoporosis [id number] Family History Medical History Relation Name Comments Cancer Brother 1 Afshin Marrufo Melanoma Brother 1 Afshin Marrufo Hypertension Brother 2 Mika Marrufo Arthritis Father Steve Marrufo Cancer Father Steve Marrufo Heart attack Father Steve Marrufo Lung cancer Father Steve Marrufo Breast cancer Maternal Great-Grandmother Arthritis Mother Mary Marrufo Atrial fibrillation Mother Mary Marrufo cause o f Bladder Cancer Mother Mary Marrufo primary Breast cancer Mother Mary Marrufo primary Cancer Mother Mary Marrufo Hypertension Mother Mary Marrufo Rectal cancer Mother Mary Marrufo 2009 - primar y Breast cancer Paternal Grandmother Relation Name Status Comments Brother 1 Afshin Marrufo Brother 2 Mika Marrufo Alive Father Steve Marrufo Maternal Great-Grandmother Mother Mary Marrufo Paternal Grandmother Social History Tobacco Use Types Packs/Day Years [...] Orientation Straight 07/21/2021 2: 12 PM CDT Obstetrics History Para Term AB IAB SAB Ectopic Multiple Livin g Live Births 0 Last Filed Vital Signs Vital Sign Reading [...] 10/17/2024 1:02 PM CDT Plan of Treatment Health Maintenance Due Date Last Done Comments Depression Screening 1955 Hepatitis C Screening 1955 DTaP/Tdap/Td Vaccine (1 - Tdap) 1965 Hepatitis B Screening 02/04/1972 Well Visit 65+ 2019 Zoster Vaccine (1 of 2) 03/27/2021 01/30/2021 Pneumococcal vaccine 65+ (2 of 2 - PCV) 01/30/2022 01/30/2021 Covid-19 Vaccine (2023-2 5 season) 2024 08/07/2021, 02/17/2021, 07/13/2020, Additional history exists Breast Cancer Screening-Mammogram 11/21/2024 11/22/2023, 11/22/2023, 10/12/2022, Additional history exists Influenza Vaccine (Season Ended) 2025 Osteoporosis Screening-Bone Density Scan 01/08/2025 01/08/2023, 01/08/2023, 06/30/2021, Additional history exists Fall Risk Assessment 06/15/2025 06/15/2024, 02/07/20 24 Colon Cancer Screening-Colonoscopy 03/30/2032 03/30/2022, 03/17/2021, 02/12/2021, Additional history exists Medical Devices Implanted Type Area Body Artist Device Identifier Shelf Expiration Date Model / Serial / Lot [employer] Shell Acetabular Hip Porous 3 Hole Coated Emphasys 50mm Titanium [id number] - [id number] Implanted:Qty: 1 on 02/16/2024 by Carlos Crook MD at [facility] Left: Hip [employer] Inc [id number] 12/07/2033 [id number] / / [id number] [employer] Liner Acetabular Hip Standard Emphasys Aox [id number] Polyethylene [id number] - [id number] Implanted:Qty: 1 on 02/16/2024 by Carlos Crook MD at [facility] Left: Hip [employer] [id number] 12/07/2028 [id number] / / [id number] [employer] Actis 105mm Collar Hip 5 High Offset Stem Femoral [id number] - [id number] Implanted:Qty: 1 on 02/16/2024 by Carlos Crook MD at [facility] Left: Hip [employer] [id number] 11/06/2033 [id number] / / [id number] [employer] Articul/Wilton 36mm Cementless Hip +1.5mm 12/14 Taper Head Femoral Latex Free [id number] - [id number] Implanted:Qty: 1 on 02/16/2024 by Carlos Crook MD at [facility] Left: Hip [employer] [id number] 10/07/2028 [id number] / / [id number] Procedures Procedure Name Priority Date/Time Associated Diagnosis Comments POCT URINALYSIS DIPSTICK Routine 10/07/2024 8:39 AM CDT UTI symptoms URINE CULTURE Routine 10/07/2024 8:32 AM CDT UTI symptoms COLONOSCOPY 03/30/2022 1:45 PM COMPUTER LANGUAGE CODER from Last 3 Months or Most Recently Relevant to Health Maintenance Results * POCT urinalysis dipstick (10/07/2024 8:39 AM CDT) Color, Urine, POC Yellow Clarity, ur, POC Clear Clear Glucose, ur, POC Negative Negative Bilirubin, ur, POC Negative Negative Ketones, ur, POC Negative Negative Specific [place], POC 1.005 1.003 - 1.030 Blood, ur, POC Negative Negative pH, ur, POC 6.0 5.0 - 8.0 Protein, ur, POC Negative Negative Urobilinogen, urine, POC 0.2 0.2 - 1.0 mg/dL Nitrite, ur, POC Negative Negative Leukocytes, ur, POC Negative Negative Lot Number [id number] Urine 10/07/2024 8:39 AM CDT Jerri Juarez NP POINT OF CARE TEST BARTOLOME ALMEIDA Final Result * Urine culture Urine, clean voided (10/07/2024 8:32 AM CDT) Report Final Report: Less than 100,000 colonies/mL (clinically insignificant growth based on current clinical standards) Comment:Testing performed by : [facility], [address] [place]., [address] Organism (CLINICALLY INSIGNIFICANT GROWTH ADITYA Urine, clean voided 10/07/2024 8:32 AM CDT 10/07/2024 6:23 PM CDT Narrative ADITYA BAGLEY - 10/08/2024 7:25 PM CDT Testing performed by [facility] Microbiology Laboratory ([phone]) Jerri Juarez NP LAB MICROBIOLOGY - GENE RAL ORDERABLES Final Result [facility] [address] Department [place] [address] * COLONOSCOPY (03/30/2022 1:45 PM COMPUTER LANGUAGE CODER) Anatomical Region Laterality Modality Other Narrative Procedure Note Yeyo Hu MD - 03/30/2022 1:45 PM CST ENDOSCOPY LAB Patient Name: Latanya Dangelo Procedure Date: 03/30/2022 1:45 PM Admit Type: Outpatient Room: [facility] 6 Date of : 1955 Instrument Name: -[id number] Gender: Female Note Status: Finalized Procedure: Colonoscopy [...] Most Recently Relevant to Health [place] [address] MEDICARE [facility] MEDICARE SUPPLEMENT MEDICARE COMMERCIAL GENERIC MEDICARE [facility] MEDICARE SUPPLEMENT Advance Directives For more information, please contact: [phone] * Full Code (Latest Code Status on [...] 8:56 AM 03/17/2021 3:05 PM Care Teams Scroll Saw Operator Relationship Specialty Start Date End Date Tong Riggs MD PCP - General Family Practice 12/23/20 Matthieu Fortune MD PhD [address] [place] [address] Radiation Oncologist Radiation Oncology 07/30/21 Leona Suazo MD [address] SURGERY [facility], [place] [address] Consulting Physician General Surgery 07/30/21 Kunal Ramos MD [address] [address] Referring Physician Internal Medicine 07/30/21 Carlos Crook MD [address] [address] Surgeon Orthopedic Surgery 02/16/24
--- OUTSIDE RECORDS SUMMARY | 2024-10-18 08:29 | XMS_ITS | Encounter Summary ---
Author Organization [facility] Address [address] [place] [address] Phone Care Team Providers Care Pumper Gauger Name Role Phone Tong Riggs MD Primary Care Provider [phone] Matthieu Fortune MD PhD Unavailable [phone] Leona Suazo MD Unavailable [phone] Kunal Ramos MD Unavailable Carlos Crook MD Unavailable [phone] Encounter Details Date Type Department Care Team (Late st Contact Info) Description 01/09/2021 Orders Only [facility] Scanning, Provider Social History Tobacco Use Types Packs/Day Years Used Date Smoking Tobacco: Never Assessed Comments Unknown Sex and Gender Information Value Date Recorded Sex Assigned at Not on file Legal Sex Female 2:25 PM CDT Gender Identity Female 03/12/2021 12:38 PM CDT Sexual Orientation Straight 07/21/2021 2: 12 PM CDT documented as of this encounter Plan of Treatment Not on file documented as of this encounter Procedures Procedure Name Priority Date/Time Associated Diagnosis Comments SCAN - RADIOLOGY/IMAGING 01/09/2021 documented in this encounter Results * SCAN - RADIOLOGY/IMAGING (01/09/2021) Anatomical Region Laterality Modality Other us Provider Scanning Final Result documented in this encounter Visit Diagnoses Not on filedocumented in this encounter Care Teams Pumper Gauger Relationship Specialty Start Date End Date Tong Riggs MD PCP - General Family Practice 12/23/20 Matthieu Fortune MD PhD [address] [place] [address] Radiation Oncologist Radiation Oncology 07/30/21 Leona Suazo MD [address] SURGERY [facility], [place] [address] Consulting Physician General Surgery 07/30/21 Kunal Ramos MD [address] [facility] [address] [place] [address] Referring Physician Internal Medicine 07/30/21 Carlos Crook MD [address] [address] Surgeon Orthopedic Surgery 02/16/24 documented as of this encounter
--- OUTSIDE RECORDS SUMMARY | 2024-10-18 08:29 | XMS_ITS ---
Author Organization [facility] Address [address] [facility] [place] [address] Care Team Providers Care It Lead Name Role Phone Tong Riggs MD Primary Care Provider [phone] Active Problems Problem Noted Date Diagnosed Date Cigarette smoker 06/09/2022 Vitamin D deficiency, unspecified 06/09/2022 Osteopenia 11/28/2021 Malignant neoplasm of centra l portion of left breast in female, estrogen receptor positive 04/15/2021 Cancer Staging:Clinical stage from 03/12/2021:Stage 0(cTis (DCIS), cN0, cM0, ER+, NV+, HER2: Not Assessed) - Signed by Leona Suazo MD on 04/15/2021 Pathologic stage from 05/20/2021:Stage IA(pT1b, pN0(sn), cM0, G2, ER+, NV+, HER2: Equivocal) - Signed by Leona Suazo MD on 06/25/2021 Current Treatment and Therapy Plans PORT MAINTENANCE THERAPY PLAN* Plan Start Date:06/08/2023 Plan Provider:Kunal Ramos MD Linked Problems Malignant neoplasm of centra l portion of left breast in female, estrogen receptor positive (HCC) Treatment Medications No medications scheduled. SUPPORT (DENOSUMAB) Q182 DAYS (PROLIA)* Plan Start Date:12/01/2021 Plan Provider:Kunal Ramos MD Linked Problems Malignant neoplasm of centra l portion of left breast in female, estrogen receptor positive (HCC)Osteopenia of multiple sites Treatment Medications Current Day (Day 1, Cycle 7 - Planned for 12/22/2024) No medications scheduled. No medications schedul ed. Past Treatment and Therapy Plans ONCOLOGY TREATMENT Plan Name Start Date Discontinue Date Treatment Medications Discontinue Reason Plan Provider Cycles BREAST ADJ (DOXORUBI VICKI CYCLOPHOS PHAMIDE) Q14 DAYS (DDAC) --> (PACLITAX EL) Q14 DAYS 12/16/2022 05/23/2023 cycloPHOSphamide (Cytoxan) infusion (200 mg/mL vial)DOXOrubicin (Adriamycin)PACLita xel (Taxol) in 500 mL infusion Therapy Complete Kunal Ramos MD 8 of 8 cycles started Lifetime Dose Tracking * Chemical Lifetime Dose Automatic Entry Manual Entr y Doxorubicin 244.64 mg/m2 (496 mg) 244.64 mg/m2 (496 m g) 0 mg/m2 (0 mg) Dose Length Product 440.5 mGy-cm 440.5 mGy-cm 0 mGy-cm
--- OUTSIDE RECORDS SUMMARY | 2024-10-18 08:29 | XMS_ITS | Clinical Summary ---
Author Organization [facility] Address [address] [place] [address] Phone Care Team Providers Care Internet Salesperson Name Role Phone Tong Riggs MD Primary Care Provider [phone] Allergies Active Allergy Reactions Criticality Noted Date Comments Other-Environmental Allergen (Not Found In Search) Anaphylaxis High 06/29/2022 CT CONTRAST DYE Penicillins Anaphylaxis High 06/29/2022 Sulfa Antibiotics Hives 06/29/2022 Medications gabapentin (NEURONTIN) 300 MG CapsuleIndicatio ns:Fibromyalgia Syndrome Take 300 mg by mouth nightly. Indications: Fibromyalgia Syndrome Active pantoprazole (PROTONIX) 40 MG Tablet Delayed Response Take 40 mg by mouth in the morning and at bedtime. Active FAMOTIDINE PO Take 1 Tablet by mouth nightly. At midnight Active tiZANidine HCl 4 MG Capsule Take 4 mg by mouth 3 times daily as needed. Active ondansetron (ZOFRAN) 8 MG Tablet Take 8 mg by mouth every 8 hours as needed. Active Denosumab (PROLIA SC) by Subcutaneous route. Once every 6 months- last dose was 06/09/22 Active DULoxetine (CYMBALTA) [address] Hill ions:FOR ARTHRITIS Take 60 mg by mouth 2 times daily. Indications: FOR ARTHRITIS Active anastrozole (ARIMIDEX) 1 MG Tablet Take 1 mg by mouth nightly Active VITAMIN D PO Take 5,000 Int'l Units/day by mouth daily. Active Ascorbic Acid (Vitamin C) 1000 MG Tablet Take 1 Tablet by mouth daily. Active calcium-magnesiu m-zinc 333-133-5 MG Tablet Take 1 Tablet by mouth daily. Active eszopiclone (Lunesta) 3 MG Tablet Take 3 mg by mouth nightly as needed. Active Sennosides (SENOKOT PO) Take 2 Tablets by mouth 2 times daily. Active B Complex Vitamins (VITAMIN B COMPLEX PO) Take 1 Tablet by mouth daily. Active Multiple Vitamin (MULTI-VITAMIN PO) Take by mouth. Activ e oxyCODONE-acetam inophen (PERCOCET) 7.5-325 MG TabletIndication s:per patient on 10/13/22, uses this dose as needed to treat fibromyalgia pain. Take 1 Tablet by mouth every 4 hours as needed. Indications: per patient on 10/13/22, uses this dose as needed to treat fibromyalgia pain. Active gabapentin (NEURONTIN) 100 MG CapsuleIndicatio ns:takes in a.m. and at noon daily. Take 100 mg by mouth in the morning and at bedtime. 100 in am Indications: takes in a.m. and at noon daily. Active temazepam (RESTORIL) 15 MG Capsule Take 15 mg by mouth nightly. Active HYDROcodone-acet aminophen (NORCO) 10-325 MG TabletIndication s:Acquired hallux valgus of left foot Take 1 Tablet by mouth every 4 hours as needed for Mild or more severe pain. 30 Tablet 3 Active Active Problems No known active problems Family History Medical History Relation Name Comments Arthritis Father Cancer Father lung Chronic Obstructive Pulmonary Disease Father Heart Attack Father Cancer Mother rectal, bladder , breast Hypertension Mother Relation Name Status Comments Father Mother Social History Tobacco Use Types Packs/Day Years Used Date Smoking Tobacco: Former Cigarettes 1 974 - 10/24/2022 Smokeless Tobacco: Never Tobacco Cessation:Counseling Given: Not Answered Alcohol Use Standard Drinks/Week Comments Not Currently 0 (1 standard drink = 0.6 oz pur e alcohol) almost never Comments Unknown Sex and Gender Information Value Date Recorded Sex Assigned at Not on file Legal Sex Female 10:18 AM DIRECTOR PRODUCT SAFETY Gender Identity Not on file Sexual Orientation Not on file Last Filed Vital Signs Vital Sign Reading Time Taken Comments Blood Pressure 131/79 10/29/2022 12:35 PM CDT Pulse 67 10/29/2022 12:35 PM CDT Temperature 36.6 C (97.9 F) 10/29/2022 12:35 PM CDT Respiratory Rate 20 10/29/2022 12:35 PM CDT Oxygen Saturation 95% 10/29/2022 12:35 PM CDT Inhaled Oxygen Concentration - - Weight 80.7 kg (178 lb) 10/29/2022 6:00 AM CDT Height 167.6 cm (5' 6) 10/29/2022 6:00 AM CDT Body Mass Index 28.73 10/29/2022 6:00 AM CDT Plan of Treatment Health Maintenance Due Date Last Done Comments Hepatitis C Virus (HCV) Screening 1955 TdaP Immunization 1955 Cologuard 1999 Immunochemical Fecal Occult Blood 1999 Respiratory Syncytial Virus (RSV) Immunization (Adult) (1 - Risk 60-74 years 1-dose series) 2014 Zoster Immunization (1 of 2) 03/27/2021 01/30/2021 Pneumococcal Immunization (50+ years) (2 of 2 - PCV) 01/30/2022 01/30/2021 DEXA Bone Density 06/30/2023 06/30/2021 Mammogram 10/15/2023 10/14/2022, 06/0 09/2022, 10/12/2022, Additional history exists SARS-COV-2 Immunization ( season) 2024 01/31/2022, 08/07/2021, 02/17/2021, Additional history exists Influenza Immunization (Season Ended) 2025 Colonoscopy 03/30/2032 03/30/2022 Colorectal Cancer Screening 03/30/2032 Hepatitis B Immunization Aged Out No longer eligible based on patient's age to complete this topic Human Papillomavirus (HPV) Immunization Aged Out No longer eligible based on patient's age to complete this topic Meningococcal Immunization (ACWY) Aged Out No longer eligible based on patient's age to complete this topic Rotavirus Immunization Aged Out No lo nger eligible based on patient's age to complete this topic Medical Devices Implanted Type Area Waxer Tender Device Identifier Shelf Expiration Date Model / Serial / Lot [employer] [place] Screw 4mm X 48mm Implanted:Qty: 1 on 07/16/2022 by Jocelyn Christianson DPM at [facility] Right: Toe [employer] 11/27/2028 [id number] / [id number] / [id number] [employer] Prostep Ana [place] Screw 3mm X 36mm Implanted:Qty: 1 on 07/16/2022 by Jocelyn Christianson, DPM at [facility] Right: Toe [employer] 06/15/2030 [id number] / [id number] / [id number] [employer] Prostep Ana Maria Screw 3mm X 28mm Implanted:Qty: 1 on 07/16/2022 by Jocelyn Christianson, DPM at [facility] Right: Toe [employer] 03/21/2029 [id number] / [id number] / [id number] Young Large Phalnix Implant Implanted:Qty: 1 on 07/16/2022 by Jocelyn Christianson, DPM at [facility] Right: Toe YOUNG [id number] / [id number] / [id number] [place] 0.9mm K Wire Implanted:Qty: 1 on 07/16/2022 by Jocelyn Christianson, DPM at [facility] Right: Toe YOUNG [id number] / [id number] / [id number] Description:SECOND DIGIT, RI GHT FOOT Prostep Ana Maria Screw 4mm X 52mm Implanted:Qty: 1 on 10/29/2022 by Jocelyn Christianson, DPM at [facility] Left: Foot 08/18/2029 [id number] / [id number] / [id number] Description:[employer] Prostep Ana Maria Screw Implanted:Qty: 1 on 10/29/2022 by Jocelyn Christianson, DPM at [facility] Left: Foot 05/22/2030 [id number] / [id number] / [id number] Phalinx Implanted:Qty: 1 on 10/29/2022 by Jocelyn Christianson, DPM at [facility] Left: Foot [id number] / [id number] / [id number] Prostep Ana Maria Screw 3mm X 48mm Implanted:Qty: 1 on 10/29/2022 by Jocelyn Christianson DPM at [facility] Left: Foot 12/01/2029 [id number] / [id number] / [id number] Description:[facility] [employer] inc[employer] Explanted Type Area Waxer Tender Device Identifier Shelf Expiration Date Model / Serial / Lot [place] 1.4mm K Wire Explanted:Qty: 1 on 07/16/2022 at [facility] Right: Toe YOUNG [id number] / [id number] / [id number] [place] 1.4mm K Wire Explanted:Qty: 1 on 07/16/2022 at [facility] Right: Toe YOUNG [id number] / [id number] / [id number] Young 0.9mm K Wire Explanted:Qty: 1 on 07/16/2022 at [facility] Right: Toe YOUNG [id number] / [id number] / [id number] Insurance MEDICARE [facility] Member Subscriber Plan / Payer (Ef fective 2020-Present) Name:Latanya Dangelo Relation to Subscriber:Self Name:Latanya Dangelo Payer ID:[id number] Group ID:[id number] Type:Not on file Address: [address] [place] [id number] Care Teams Internet Salesperson Relationship Specialty Start Date End Date Tong Riggs MD [address] [place] [address] PCP - General Family Medicine 06/26/22
--- OUTSIDE RECORDS SUMMARY | 2024-10-18 08:29 | XMS_ITS ---
Author Organization [facility] Address [address] [place] [address] Care Team Providers Care Blanket Weaver Name Role Phone Tong Riggs MD Primary Care Provider [phone] Matthieu Fortune MD PhD Unavailable Leona Suazo MD Unavailable Kunal Ramos MD Unavailable Carlos Crook MD Unavailable Active Problems Problem Noted Date Diagnosed Date Chronic gastric ulcer withou t hemorrhage and without perforation 04/18/2024 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 04/10/2024 Gastroesophageal reflux disease 01/18/2024 Anemia 01/18/2024 Vitamin D deficiency, unspecified 06/09/2022 Personal history of colonic polyps 03/24/2022 Overview (03/24/2022): Added automatically from request for surgery [id number] Nausea 03/24/2022 Overview (03/25/2022): Added automatically from request for surgery [id number] Heartburn 03/24/2022 Overview (03/25/2022): Added automatically from request for surgery [id number] Osteopenia 11/28/2021 Malignant neoplasm of lower- inner quadrant of left breast in female, estrogen receptor positive 07/30/2021 Cancer Staging:Pathologic stage from 07/30/2021:Stage IA(pT1b, pN0(sn), cM0, G2, ER+, TX+, HER2-, Oncotype DX score: 25) - Signed by Matthieu Fortune MD PhD on 07/30/2021 Pathologic stage from 11/23/2022: pN1a, cM0, ER+, TX+, HER2- - Signed by Matthieu Fortune MD PhD on 05/27/2023 Adenomatous polyp of ascending colon 02/14/2021 Overview (02/14/2021): Added automatically from request for surgery [id number] Encounter for screening colonoscopy 01/21/2021 Overview (01/21/2021): Added automatically from request for surgery [id number] Acute pancreatitis without infection or necrosis 01/15/2021 Overview (01/15/2021): Added automatically from request for surgery [id number] Current Treatment and Therapy Plans No current plan information found. Past Treatment and Therapy Plans No past plan information found. Radiation Treatments * Course [id number] 06/14/2023 - 07/05/2023 Treatment Period Energy Fraction Dose Fractions Total Dose Plans Planned LT AXILLA 06/14/2023 - 07/05/2023 266 16 / 4,256 Reference Points Delivered [id number] 06/14/2023 - 07/05/2023 4,256 * Course C1 L BREAST 202108/14/2021 - 09/12/2021 Treatment Period Energy Fraction Dose Fractions Total Dose Plans Planned L BREAST 08/14/2021 - 09/12/2021 266 16 / 4,256 LLIQ BRS BST 09/08/2021 - 09/12/2021 250 4 / 1,000 Reference Points Delivered BST DPV 09/08/2021 - 09/12/2021 1,000 VAZQUEZ DPV 08/14/2021 - 09/12/2021 4,256 Lifetime Dose Tracking * Chemical Lifetime Dose Automatic Entry Manual Entr y Fluoro Time 0.133 minutes 0.133 minutes 0 minutes Air kerma at the reference point (Ka,r) 1.6 mGy 1 .6 mGy 0 mGy Resolved Problems Problem Noted Date Diagnosed Date Resolved Date Primary osteoarthritis of left hip 02/07/2024 04/10/2024
--- OUTSIDE RECORDS SUMMARY | 2024-10-18 08:29 | XMS_ITS | Clinical Summary ---
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 This disclosure is being madepursuant to the Care Everywhere program and may not contain all information available regarding this patient. Last updated 18.[email or web address] Allergies Active Allergy Reactions Criticality Noted Date Comments Contrast-Iodinated Agents Fo r Ct/Other Anaphylaxis High 04/15/2021 Penicillins Anaphylaxis High 01/15/2021 Sulfa Drugs Urticaria,Anaphylaxis High 06/15/2019 Medications * Be aware that medications may not be up to date on this document. Alwaysverify current medications with the patient. ondansetron, disintegrating , (ZOFRAN ODT) 8 MG tablet 12/25/19 21 Active tiZANidine (ZANAFLEX) 4 MG tablet 03/11/20 21 Active B Complex Vitamins (VITAMIN B COMPLEX) tablet Take 1 (one) tablet by mouth once daily Active ascorbic acid (VITAMIN C) 125 MG TABS half tablet Take 8 (eight) Half Tablet by mouth once daily Active Denosumab (PROLIA SC) 12/09/19 22 Active Multiple Vitamins-Photography Assistant als (RA VISION-GINGER PRESERVE PO) Take by mouth once daily Active vitamin D (Cholecacifero l) 125 MCG (5000 UT) capsule Take 1 (one) capsule by mouth once daily Active atorvastatin (Lipitor) 10 MG tablet Take 1 (one) tablet by mouth once daily 10/28/19 23 Active sennosides (Senokot) 8.6 MG tablet Take 2 (two) tablets by mouth 2 times daily Active calcium-magnes ium-zinc 333-133-5 MG tablet Take 1 (one) tablet by mouth once daily Active naloxone HCl (Narcan) 4 MG/0.1ML nasal spray 12/04/19 23 Active oxyCODONE-acet aminophen (Percocet) 7.5-325 MG tablet Take 1 (one) tablet by mouth every 4 hours as needed Active Multiple Vitamin (MULTI-VITAMIN DAILY PO) Active pantoprazole EC (Protonix) 40 MG tablet Take 1 (one) tablet by mouth 2 times daily 30 tablet 4 03/24/20 23 Active prochlorperazi ne (Compazine) 10 MG tabletIndicati ons:Malignant neoplasm of central portion of left breast in female, estrogen receptor positive (HCC) Take 1 (one) tablet by mouth every 6 hours as needed for Nausea/Vomiting 30 tablet 6 12/24/19 24 Active Additional Information Patient not taking.Reported on 08/02/2024 doxepin (SINEquan) 25 MG capsule TAKE 1 CAPSULE BY MOUTH EVERY DAY AT BEDTIME 04/04/20 24 Active ferrous sulfate EC 325 (65 Fe) MG tablet Take by mouth 2 times daily Active tamoxifen (Nolvadex) 20 MG tablet Take 1 (one) tablet by mouth once daily -90 day supply 90 tablet 4 05/02/20 24 Active adalimumab (Humira) 40 MG/0.4ML injectionIndic ations:Rheumat oid arthritis involving multiple sites with positive rheumatoid factor (HCC) Inject 0.4 mL subcutaneously every 14 days 0.8 mL 5 06/14/19 25 Active Additional Information Patient not taking.Reported on 06/23/2024 pregabalin (Lyrica) 100 MG capsule Take 1 (one) capsule by mouth 3 times daily 90 capsule 4 06/23/19 25 Active methotrexate 2.5 MG tabletIndicati ons:Rheumatoid arthritis involving multiple sites with positive rheumatoid factor (HCC) Take 3 (three) tablets by mouth every 7 days 12 tablet 2 08/22/19 25 Active folic acid (Folvite) 1 MG tabletIndicati ons:High risk medication use Take 1 (one) tablet by mouth once daily 30 tablet 2 08/22/19 25 Active famotidine (Pepcid) 20 MG tablet TAKE 1 TABLET BY MOUTH AT MIDNIGHT FOR REFLUX TYPE SYMPTOMS 90 tablet 1 09/21/19 25 Active predniSONE (Deltasone) 5 MG tabletIndicati ons:Rheumatoid arthritis involving multiple sites with positive rheumatoid factor (HCC) Take 1 (one) tablet by mouth once daily 30 tablet 2 09/22/19 25 Active famotidine (Pepcid) 20 MG tablet TAKE 1 TABLET BY MOUTH AT MIDNIGHT FOR REFLUX TYPE SYMPTOMS 90 tablet 1 05/02/20 24 025 Discontin ued(Reord er) predniSONE (Deltasone) 5 MG tablet Take 1 (one) tablet by mouth once daily 30 tablet 2 08/03/19 25 025 Discontin ued(Reord er) Active Problems Problem Noted Date Diagnosed Date Cigarette smoker 06/09/2022 Vitamin D deficiency, unspecified 06/09/2022 Osteopenia 11/28/2021 Malignant neoplasm of centra l portion of left breast in female, estrogen receptor positive 04/15/2021 Cancer Staging:Clinical stage from 03/12/2021:Stage 0(cTis (DCIS), cN0, cM0, ER+, NH+, HER2: Not Assessed) - Signed by Leona Suazo MD on 04/15/2021 Pathologic stage from 05/20/2021:Stage IA(pT1b, pN0(sn), cM0, G2, ER+, NH+, HER2: Equivocal) - Signed by Leona Suazo MD on 06/25/2021 Encounters Date Type Department Care Team Description 10/06/2024 Telephone [facility] [address] [facility] [address] [facility] [address] [place] [address] Kunal Ramos MD Appointment 09/21/2024 Refill [facility] - Rheumatology [address] [place] [address], [address] [place] [address] Kassandra Landrum MD MEDICATION REFILL 09/20/2024 Refill [facility] [address] [place] [address] [place] [address] Kunal Ramos MD MEDICATION REFILL 09/20/2024 Refill [facility] [address] [place] [address] [place] [address] Kunal Ramos MD MEDICATION REFILL 09/20/[address] [place] [address] Kunal Ramos MD Refill Request 09/10/2024 Refill [facility] Rheumatology [address] [place] [address], [address] [place] [address] Kassandra Landrum MD Med Change Request 08/07/2024 Orders Only [address], [address] [place] [address] Kassandra Landrum MD Polyarthralgia; Medication management; Lumbar spondylosis 08/02/2024 10:20 AM CDT Office Visit [address], [address] [place] [address] Kassandra Landrum MD Rheumatoid arthritis involving multiple sites with positive rheumatoid factor (Primary Dx) 08/02/2024 Patient Message [address], [address] [place] [address] Kassandra Landrum MD Pain Management 08/02/[address], [address] [place] [address] Kassandra Landrum MD Patient Assistance Program 07/27/2024 10:42 AM CDT - 07/27/2024 11:59 PM CDT Hospital Encounter [facility] [address] [place] [address] Tong Riggs MD Discharge Disposition: Home or Self Care 07/27/2024 Travel 07/20/2024 6:57 AM CDT - 07/20/2024 11:59 PM CDT Hospital Encounter [facility] Health Imaging Services - CT Scan [address] [place] [address] Kunal Ramos MD Discharge Disposition: Home or Self Care from Last 3 Months Immunizations Immunization Administration Dates Next Due Covid Pfizer primary monovalent 12+ yr 0.3mL Pur ple cap 08/07/2021 PNEUMOCOCCAL PPSV23 01/30/2021 ZOSTER VACCINE, LIVE 01/30/2021 Family History Medical History Relation Name Comments Cancer - Lung Father Cancer - Bladder Mother Cancer - Breast Mother Cancer - Colon Mother Cancer - Breast Paternal Grandmother Relation Name Status Comments Father Mother Paternal Grandmother Social History Tobacco Use Types Packs/Day Years Used Date Smoking Tobacco: Former Cigarettes Smokeless Tobacco: Never Tobacco Cessation:Counseling Given: Not Answered Comments:Quit smoking 01/09/24 Alcohol Use Standard Drinks/Week Comments Not Currently 0 (1 standard drink = 0.6 oz pur e alcohol) AUDIT-C Answer Date Recorded Q1: How often do you have a drink containing alcohol? Never 11/13/2022 Q2: How many drinks containi ng alcohol do you have on a typical day when you are drinking? Patient does not drink Q3: How often do you have si x or more drinks on one occasion? Never 11/13/2022 PHQ-2 Answer Date Recorded Patient Health Questionnaire-2 Score 0 08/02/2024 Comments No Sex and Gender Information Value Date Recorded Sex Assigned at Female 05/23/2021 4:05 PM [facility] Legal Sex Female 8:16 AM CDT Gender Identity Female 05/23/2021 4:05 PM [facility] Sexual Orientation Straight 05/23/2021 4: 05 PM [facility]ER Last Filed Vital Signs Vital Sign Reading Time Taken Comments Blood Pressure 132/88 08/02/2024 10:10 AM CDT Pulse 104 08/02/2024 10:10 AM CDT Temperature 36.3 C (97.4 F) 08/02/2024 10:10 AM CDT Respiratory Rate 16 08/02/2024 10:10 AM CDT Oxygen Saturation 95% 08/02/2024 10:10 AM CDT Inhaled Oxygen Concentration 40% 11/13/2022 3 :57 PM CDT Weight 94.5 kg (208 lb 6.4 oz) 08/02/2024 10:10 AM CDT Height 167.6 cm (5' 6) 06/23/2024 10:27 AM TINT LAYER Body Mass Index 33.64 06/23/2024 10:27 AM TINT LAYER Plan of Treatment Upcoming Encounters Date Type Department Care Team (Late st Contact Info) Description 10/18/2024 12:40 PM CDT Appointment [facility] [address] [place] [id number] Kunal Ramos MD [address] [place] [address] 10/18/2024 1:00 PM CDT Documentation [address] [address] 10/18/2024 1:20 PM CDT Office Visit [address] [address] Kunal Ramos MD [address] [place] [address] 12/04/2024 9:30 AM CDT Appointment [address] [address] Leona Suazo MD [address] [place] [phone] 12/04/2024 9:45 AM CDT Appointment [address] [address] 12/04/2024 10:30 AM CDT Office Visit [facility] - General Surgery [address] [place] [phone] Leona Suazo MD [address] [place] [phone] 12/06/2024 10:00 AM CDT Office Visit [facility] - Rheumatology [address] [address] [place] [address] Kassandra Landrum MD [address] [place] [address] 12/22/2024 11:20 AM CDT Appointment [facility] [address], [address] [place] [address] Health Maintenance Due Date Last Done Comments COLOGUARD (AGES 45-75) - COLON CA SCREENING 1954 CT COLONOGRAPHY - COLON CA SCREENING 1955 FIT - COLON CA SCREENING 1954 FLEX SIG - COLON CA SCREENING 1955 MEDICARE AWV 12 MONTHS 1954 DTAP/TDAP/TD VACCINES (1 - Tdap) 1973 ZOSTER VACCINE (2 of 3) 03/27/2021 01/30/2021 PNEUMOCOCCAL VACCINE 50+ (2 of 2 - PCV) 01/30/2022 01/30/2021 COVID-19 VACCINE (5 - season) 2024 08/07/2021, 02/17/2021, 07/13/2020, Additional history exists INFLUENZA VACCINE (Season Ended) 2025 MAMMOGRAM 11/21/2025 11/22/2023, 06/0 09/2022, 12/24/2021, Additional history exists SCREENING FOR DIABETES 08/08/2027 , 07/07/2024, 06/23/2024, Additional history exists Respiratory Syncytial Virus (RSV) Vaccine Pt: or over 60 yrs (1 - 1-dose 75+ series) 2029 COLON MONITORING 03/30/2032 03/30/2022, 12/2020, 02/12/2021, Additional history exists COLONOSCOPY - COLON CA SCREENING 03/30/2032 03/30/2022, 03/17/2021, 02/12/2021, Additional history exists Colorectal Cancer Screening 03/30/2032 BONE DENSITY TESTING Completed 01/08/2023, 06/30/19 22 HEPATITIS C SCREENING Completed 04/19/2024 DEPRESSION SCREENING Completed 06/23/2024, 05/24/2023, 06/09/2022, Additional history exists HEPATITIS B VACCINE Aged Out No longe r eligible based on patient's age to complete this topic HIB VACCINE Aged Out No longer eligi ble based on patient's age to complete this topic HPV VACCINE Aged Out No longer eligi ble based on patient's age to complete this topic MENINGOCOCCAL (Group B) VACCINE SHARED DECISION-MAKING Aged Out No longer eligible based on patient's age to complete this topic MENINGOCOCCAL GROUPS A/C/Y/W VACCINE Aged Out No longer eligible based on patient's age to complete this topic Medical Devices Implanted Type Area Body Fitter Device Identifier Shelf Expiration Date Model / Serial / Lot Port Implinfn Powerport Isp Mri Argd - [id number] Implanted:Qty: 1 on 11/13/2022 by Leona Suazo MD at [facility] Peripheral Vascular 04/08/2023 [id number] / [id number] / [id number] Mrkr 17ga Rgd Ndl Radopq Ultracor Twirl Implanted:Qty: 1 on 07/27/2024 by Joycelyn Chua MD at [facility] Left: Axilla Bard Peripheral Vascular [id number] 02/04/2027 [id number] / / Procedures Procedure Name Priority Date/Time Associated Diagnosis Comments ERYTHROCYTE SEDIMENTATION RATE Routine 08/07/2024 10:05 AM CDT Rheumatoid arthritis involving multiple sites with positive rheumatoid factor (HCC) COMPREHENSIVE METABOLIC PANEL Routine 08/07/2024 10:05 AM CDT Rheumatoid arthritis involving multiple sites with positive rheumatoid factor (HCC) CBC W AUTO DIFFERENTIAL Routine 08/07/2024 10:05 AM CDT Rheumatoid arthritis involving multiple sites with positive rheumatoid factor (HCC) C-REACTIVE PROTEIN Routine 08/07/2024 10 :05 AM CDT Rheumatoid arthritis involving multiple sites with positive rheumatoid factor (HCC) US AXILLA LEFT BIOPSY Routine 07/27/2024 12:09 PM CDT Abnormal mammogram PATHOLOGY TISSUE Routine 07/27/2024 11:3 0 AM CDT Abnormal mammogram PET CT SKULL TO MID THIGH Routine 07/20/2024 8:18 AM CDT Malignant neoplasm of central portion of left breast in female, estrogen receptor positive Allergy to iodinated contrast media HEPATITIS SCREEN ACUTE ([facility]) Routine 04/19/2024 9:31 AM [facility] Rheumatoid arthritis involving multiple sites with positive rheumatoid factor Encounter for other specified special examinations MAMMO BILAT DIAGNOSTIC W JOANNA Routine 11/22/2023 10:03 AM CDT Malignant neoplasm of central portion of left breast in female, estrogen receptor positive DEXA BONE DENSITY AXIAL SKELETON Routine 01/08/2023 9:03 AM CDT Malignant neoplasm of central portion of left breast in female, estrogen receptor positive Other specified disorders of bone density and structure, other site from Last 3 Months or Most Recently Relevant to Health Maintenance Results * C-REACTIVE PROTEIN (08/07/2024 10:05 AM CDT) C-Reactive Protein 3.1 <8.0 mg/L [facility] Comment: Test Performed at: [facility] [address] [facility] [place] [address] NICOLASA LESTER MD Blood BLOOD SPECIMEN / Unknown 08/07/2024 10:05 AM CDT 08/07/2024 10:05 AM CDT Kassandra Landrum MD LAB - CHEMISTRY ORDERABLES Final Result [facility] [address] [place] [address] * ERYTHROCYTE SEDIMENTATION RATE (08/07/2024 10:05 AM CDT) Erythrocyte Sedimentation Rate Westergren 9 < OR = 30 mm/h [facility] Comment: Test Performed at: [facility] [address] [place] [address] NICOLASA LESTER MD Blood BLOOD SPECIMEN / Unknown 08/07/2024 10:05 AM CDT 08/07/2024 10:05 AM CDT Kassandra Landrum MD LAB - HEMATOLOGY ORDERABLES Marni asher Result [facility] [address] [place] [address] * CBC WITH DIFFERENTIAL (08/07/2024 10:05 AM CDT) White Blood Cell Count 7.4 3.8 - 10.8 Thousand/u L [facility] RBC 4.28 3.80 - 5.10 Million/uL [facility] Hemoglobin 13.2 11.7 - 15.5 g/dL [facility] Hematocrit 40.6 35.0 - 45.0 % [facility] MCV 94.9 80.0 - 100.0 fL [facility] MCH 30.8 27.0 - 33.0 pg [facility] MCHC 32.5 32.0 - 36.0 g/dL [facility] Comment: For adults, a slight decrease in the calculated MCHC value (in the range of 30 to 32 g/dL) is most likely not clinically significant; however, it should be interpreted with caution in correlation with other red cell parameters and the patient's clinical condition. RDW 13.8 11.0 - 15.0 % [facility] Platelet Count 345 140 - 400 Thousand/u L [facility] MPV 10.7 7.5 - 12.5 fL [facility] Neutrophil Absolute 5062 1500 - 7800 cells/uL [facility] Lymphocytes Absolute 1850 850 - 3900 cells/uL [facility] Absolute Monocytes 429 200 - 950 cells/uL [facility] Eosinophils Absolute 22 15 - 500 cells/uL [facility] Basophils Absolute 37 0 - 200 cells/uL [facility] Granulocytes % 68.4 % [facility] Lymphocytes % 25.0 % [facility] Monocytes % 5.8 % [facility] Eosinophils % 0.3 % [facility] Basophils % 0.5 % [facility] Comment: Test Performed at: [facility] [address] [place] [id number] NICOLASA LESTER MD Blood BLOOD SPECIMEN / Unknown 08/07/2024 10:05 AM CDT 08/07/2024 10:05 AM CDT Kassandra Landrum MD LAB - HEMATOLOGY ORDERABLES Marni l Result [facility] [address] [place] [address] * (ABNORMAL) COMPREHENSIVE METABOLIC PANEL (08/07/2024 10:05 AM CDT) Glucose 121(H) 65 - 99 mg/dL [facility] Comment: Fasting reference interval For someone without known diabetes, a glucose value between 100 and 125 mg/dL is consistent with prediabetes and should be confirmed with a follow-up test. BUN 13 7 - 25 mg/dL [facility] Creatinine 0.74 0.60 - 1.00 mg/dL [facility] eGFR by Cystatin C 87 > OR = 60 mL/min/1. 73m2 [facility] BUN/Creatinine Ratio SEE NOTE: 6 - 22 (calc) [facility] Comment: Not Reported: BUN and Creatinine are within reference range. Sodium 141 135 - 146 mmol/L [facility] Potassium 4.5 3.5 - 5.3 mmol/L [facility] Chloride 103 98 - 110 mmol/L [facility] CO2 32 20 - 32 mmol/L [facility] Calcium 9.5 8.6 - 10.4 mg/dL [facility] Protein Total 6.6 6.1 - 8.1 g/dL [facility] Albumin 4.1 3.6 - 5.1 g/dL [facility] Globulin Total 2.5 1.9 - 3.7 g/dL (calc) [facility] Albumin/Globulin Ratio 1.6 1.0 - 2.5 (calc) [facility] Bilirubin Total 0.4 0.2 - 1.2 mg/dL [facility] Alkaline Phosphatase 51 37 - 153 U/L [facility] AST 14 10 - 35 U/L [facility] ALT 11 6 - 29 U/L [facility] Comment: Test Performed at: [facility] [address] NICOLASA LESTER MD Blood BLOOD SPECIMEN / Unknown 08/07/2024 10:05 AM CDT 08/07/2024 10:05 AM CDT Kassandra Landrum MD LAB - CHEMISTRY ORDERABLES Final Result [facility] [address] [place] [address] * US Axilla Left Biopsy (07/27/2024 12:09 PM CDT) Anatomical Region Laterality Modality Breast Left Mammography 07/27/2024 11:5 8 AM CDT Addenda Addendum by Joycelyn Chua MD on 07/28/2024 9:12 AM CDT ADDENDUM: PATHOLOGY RESULTS LOCATION: [facility] DATE OF ADDENDUM: 07/28/[address] Bhanu Garcia from biopsy of the left axilla performed by Dr. Chua demonstrates fibrous scar tissue with reactive fibrosis and proteinaceous fluid suggestive of seroma. There is no atypia, lymph node tissue, or malignancy. This is a benign lesion The pathology report is concordant with the imaging findings. Recommendation: Bilateral diagnostic mammography and left axillary ultrasound in December 2024, pending no interval concerns, at which time she would return sooner. Patient will be notified of the pathology findings and recommendations. Pathology report available for the referring provider via [employer]. > Interpreting Provider: Joycelyn Chua MD, FACR on 07/28/2024 9:10 AM Impressions 07/27/2024 1:01 PM CDT IMPRESSION: 1. Technically successful, uncomplicated ultrasound-guided core biopsy performed of a 1.2 mass / prior axillary dissection site in the left axilla. 2. A twirl -shaped tissue marker was placed at the biopsy site. The tissue marker is in good position at the biopsy site. 3. Pathology results are pending. Patient will receive her pathology results from and follow up with Dr. Suazo. An addendum will be rendered to this report when the pathology results are made available. Report dictated by Vick Espinal MD, PhD (residential pest control technician). Aidan Huerta MD, assisted in the evaluation and interpretation of the study. IJoycelyn MD, FACR have personally reviewed and interpreted this examination/study. > Interpreting Provider: Joycelyn Chua MD, FACR on 07/27/2024 1:01 PM Narrative 07/27/2024 1:01 PM CDT EXAM: ULTRASOUND-GUIDED BIOPSY OF THE LEFT AXILLA LOCATION: [facility] EXAM DATE: 07/27/2024 CLINICAL INFORMATION: Biopsy requested of a 1.2 cm left axillary soft tissue mass at the axillary dissection scar. 69-year-old female with pertinent history of left breast grade 1 DCIS diagnosed 03/12/2021, status post left breast conservation therapy (05/20/2021), status post left sentinel lymph node biopsy (06/03/2021) which was negative. Patient underwent left axillary lymph node biopsy (10/27/2022) demonstrating metastatic carcinoma. PET\CT (10/27/2022) demonstrating left axillary lymph node FDG avidity. Subsequent left axillary lymph node dissection (11/13/2022), patient was revealing for a solitary metastatic node in 1 out of [address] scan 07/20/2024 demonstrated increased uptake of FDG within the left axilla near the post surgical seroma. Ultrasound-guided core biopsy is requested. COMPARISON: Prior breast imaging studies from [facility], dated 04/23/2021, last breast imaging studies from 06/05/2024. PET/CT from 07/20/2024, 04/19/2023. Compare with left axillary ultrasound 06/05/2024. TECHNIQUE AND FINDINGS: Preprocedure images were reviewed. The procedure and its risks and benefits were discussed with the patient, including, but not limited to, bleeding, infection, allergy, and nondiagnostic specimen. Written and verbal informed consent was obtained and documented. After confirming the correct axilla for biopsy, the breast / axilla was marked with a marking pen. The patient was placed in a supine position on the ultrasound table. Prior to the procedure a hospital timeout procedure was performed, including verification of the laterality of the breast for biopsy. Ultrasound was performed for location of the lesion. A 1.2 cm mass in the axilla with a thickened cortex was localized with ultrasound guidance. The axilla /superior lateral breast was cleansed with ChloraPrep and draped in a sterile fashion. Local anesthesia was given with 3 cc of 1% Lidocaine, buffered with Sodium Bicarbonate within the skin and deeper anesthesia with 15 cc of 1% Lidocaine with Epinephrine, buffered with Sodium Bicarbonate. A small skin incision was made with a #11 scalpel blade, and through it a 12-gauge Marquee biopsy needle with an introducer was inserted to the depth of the lesion from a lateral approach. 4 biopsy samples were obtained through the lesion. A twirl -shaped tissue marker was placed at the biopsy site and a post biopsy sonogram demonstrated no evidence for hematoma about the biopsy site. Hemostasis was achieved, and the small wound was closed with Exofin. Estimated blood loss: Minimal The attending physician, Joycelyn Chua MD, was present for and performed the entire procedure. us Leona Suazo MD ORDERABLES Edited Resu lt - Final * PATHOLOGY TISSUE (07/27/2024 11:30 AM CDT) Case Report Surgical Pathology Report Case: [id number] Authorizing Provider: Leona Suazo MD Collected: 07/27/2024 11:30 AM Ordering Location: [facility] Received: 07/27/2024 12:46 PM CENTER Pathologist: Bhanu Garcia MD Specimen: Lymph Node Biopsy, US guided Left Axilla 1.2 CM soft tissue area ? Lymph node.. possible scar or cancer. Hx of Left Breast cacner 2020 & Lt axillary mets 2022 (increased FDG on PET scan in area) 07/28/2024 8:53 AM CDT [facility] Final Diagnosis Left axillary tissue, core needle biopsy: - Fibrous scar tissue with reactive fibrosis and proteinaceous fluid suggestive of seroma. - No lymph node tissue or malignancy identified. 07/28/2024 8:53 AM T [facility] PATHOLOGY LAB at 0853 CDT Microscopic Description and Comment Sections show fibrocollagenous tissue with reactive fibrosis and proteinaceous fluid. Neither lymph node tissue nor malignancy is identified. 07/28/2024 8:53 AM T [facility] Clinical History Left axillary masslike area, S/P treatment for breast cancer, metabolically active 07/28/2024 8:53 AM CDT [facility] Gross Description The requisition and specimen(s) are identified with the patient's name Latanya Dash. Received in formalin, specimen A, are 4 quinteros-white tissue cores, 1.7-1.9 cm in length and 0.3 cm in diameter, submitted in toto in cassette A1. DF Specimen processing times on 07/27/2024 are as follows: Time of excision 1130 Time specimen is placed in formalin: 1131 Total formalin fixation time: 1920 Total cold ischemia time: 1 minute 07/28/2024 8:53 AM CDT [facility] PATH[facility] Pathologist Location at [facility] 07/28/2024 8:53 AM CDT [facility] PATH[facility] Disclaimer The performance characteristics of all immunohistochemical and indirect immunofluorescence stains (if any) cited in this report were determined by the Histopathology Laboratory of [facility]. Some of these tests were developed by our own laboratory and have not been cleared or approved by the US Food and Drug Administration. The FDA does not require this test to go through premarket FDA review. These tests are used for clinical purposes. They should not be regarded as investigational or for research. This laboratory is certified under the Clinical Laboratory Improvement Amendments (CLIA) as qualified to perform high complexity clinical laboratory testing. This case has been personally reviewed and interpreted by the attending (teaching) pathologist. 07/28/2024 8:53 AM CDT [facility] Collected By Joycelyn Chua MD 8:53 AM CDT [facility] PATH[facility] Embedded Images 07/28/2024 8:53 AM CDT [facility] Pathology/Cytolo gy BIOPSY OF LYMPH NODE / Unknown 07/27/2024 11:30 AM CDT 07/27/2024 12:46 PM CDT Leona Suazo MD LAB - PATHOLOGY/CYTOLOGY OR DERABLES Final Result Performing Organization Address City/State/[facility] Co de Phone Number [facility] [address] [phone] * PET CT SKULL TO MID THIGH (07/20/2024 8:18 AM CDT) Anatomical Region Laterality Modality Head, Lower Extremity Positron E mission Tomography (PET) 07/20/2024 9:55 AM CDT Impressions 07/20/2024 10:20 AM CDT IMPRESSION: 1. There is focal metabolic uptake within a left axillary nodule, within postsurgical change. Although this masslike area is decreased in size over the prior examination, previously this appeared most likely to represent a postoperative seroma. The presence of metabolic activity within this region is concerning for local recurrence. Consider further assessment with tissue sampling. 2. No evidence of metabolically active lymphadenopathy otherwise. 3. No concerning metabolic activity within pulmonary nodularity. 4. No evidence of intra-abdominal or osseous metastatic disease. > Interpreting Provider: Blaise Orozco MD on 07/20/2024 10:20 AM Narrative 07/20/2024 10:20 AM CDT PROCEDURE: PET CT SKULL TO MID THIGH, DATE/TIME OF EXAM: 07/20/2024 8:18 AM, LOCATION [facility] INDICATION: C50.112: Malignant neoplasm of central portion of left female breast (HCC) Z17.0: Estrogen receptor positive status (ER+) Z91.041: Radiographic dye allergy status ADDITIONAL CLINICAL INFORMATION: Ordering Provider Reason For Exam: Technologist Note: Additional: COMPARISON: None. TECHNIQUE: Positron emission tomography was acquired from the skull to the mid thighs after standard delay following intravenous injection of F-18 FDG. The associated noncontrast low dose CT used for attenuation correction has decreased sensitivity compared with a standard CT. Dose: ~9.34 mCi F18-FDG. Technical details (exact dose in mCi F18-FDG, injection site, blood sugar and scan delay) are also documented in PACS as per [facility] protocol. NOPR-CMS Modifiers: Subsequent treatment strategy (PS). CMS/ACR QCDR Measurements for ACRad 41 measure: Serum glucose, mg/dl: 107 Uptake time, in min.: 58 The maximum standard uptake value (SUVmax) of metabolically active lesions is reported with BMI normalization method, unless stated otherwise. ACR reference measurements: Mean normal liver SUVmax, rounded to whole number: 3 ACR required lesional SUVmax measurement is provided in the Findings section: If no lesion is specifically documented in the Findings section with SUV max specified, then no disease-specific abnormal uptake was seen. FINDINGS: BRAIN: There is symmetric activity noted within the brain although PET imaging in this case is suboptimal as it is performed in conjunction with whole body exam. If further evaluation is needed MRI the brain with and without IV contrast recommended. HEAD/NECK: Nonspecific uptake is seen in the nasal, oral, pharyngeal and laryngeal regions and salivary glands. CHEST: No metabolically active mediastinal or hilar lymphadenopathy. Focal uptake within the distal esophagus is noted. No definitive associated mass. There are a few scattered pulmonary nodules within the lungs. These do not demonstrate evidence of metabolic activity. Continued attention on follow-up is recommended. There is no metabolically active pulmonary nodularity. Within the left axilla, there is focal uptake maximum SUV of 4.1. This corresponds to a 1.7 x 1.7 cm left axillary nodule/mass. Although this is decreased over the prior examination, the metabolic activity within it is new. Multiple surgical igor are present surrounding this region. ABDOMEN/PELVIS: Physiologic uptake is seen in the liver, spleen, GI, and tracts. MUSCULOSKELETAL: No metabolically active osseous metastatic disease. Procedure Note Blaise Orozco MD - 07/20/2024 PROCEDURE: PET CT SKULL TO MID THIGH, DATE/TIME OF EXAM: :18 AM, LOCATION [facility] INDICATION: C50.112: Malignant neoplasm of central portion of left female breast(HCC) Z17.0: Estrogen receptor positive status (ER+) Z91.041: Radiographic dye allergy status ADDITIONAL CLINICAL INFORMATION: Ordering Provider Reason For Exam: Technologist Note: Additional: COMPARISON: None. TECHNIQUE: Positron emission tomography was acquired from the skull tothe mid thighs after standard delay following intravenous injection of F-18 FDG. The associated noncontrast low dose CT used for attenuation correctionhas decreased sensitivity compared with a standard CT. Dose: ~9.34 mCi F18-FDG. Technical details (exact dose in mCi F18-FDG, injection site, blood sugar and scan delay) are also documented in PACSas per [facility] protocol. NOPR-CMS Modifiers: Subsequent treatment strategy (PS). CMS/ACR QCDR Measurements for ACRad 41 measure: Serum glucose, mg/dl: 107 Uptake time, in min.: 58 The maximum standard uptake value (SUVmax) of metabolically activelesions is reported with BMI normalization method, unless stated otherwise. ACR reference measurements: Mean normal liver SUVmax, rounded to whole number: 3 ACR required lesional SUVmax measurement is provided in the Findings section: If no lesion is specifically documented in the Findings section with SUV max specified, then no disease-specific abnormal uptake was seen. FINDINGS: BRAIN: There is symmetric activity noted within the brain although PET imaging in this case is suboptimal as it is performed in conjunctionwith whole body exam. If further evaluation is needed MRI the brain with and without IV contrast recommended. HEAD/NECK: Nonspecific uptake is seen in the nasal, oral, pharyngeal and laryngeal regions and salivary glands. CHEST: No metabolically active mediastinal or hilar lymphadenopathy.Focal uptake within the distal esophagus is noted. No definitive associatedmass. There are a few scattered pulmonary nodules within the lungs. These donot demonstrate evidence of metabolic activity. Continued attention on follow-up is recommended. There is no metabolically active pulmonary nodularity. Within the left axilla, there is focal uptake maximum SUV of 4.1. This corresponds to a 1.7 x 1.7 cm left axillary nodule/mass.Although this is decreased over the prior examination, the metabolic activitywithin it is new. Multiple surgical igor are present surrounding thisregion. ABDOMEN/PELVIS: Physiologic uptake is seen in the liver, spleen, GI, andGU tracts. MUSCULOSKELETAL: No metabolically active osseous metastatic disease. IMPRESSION: 1. There is focal metabolic uptake within a left axillary nodule, within postsurgical change. Although this masslike area is decreased in sizeover the prior examination, previously this appeared most likely to representa postoperative seroma. The presence of metabolic activity within thisregion is concerning for local recurrence. Consider further assessment withtissue sampling. 2. No evidence of metabolically active lymphadenopathy otherwise. 3. No concerning metabolic activity within pulmonary nodularity. 4. No evidence of intra-abdominal or osseous metastatic disease. > Interpreting Provider: Blaise Orozco MD on 07/20/2024 10:20 AM Kunal Ramos MD [place] ORDERABLES Final Result * HEPATITIS SCREEN ACUTE ([facility]) (04/19/2024 9:31 AM TINT LAYER) Hepatitis A Virus Antibody IgM Negative Negative [facility] INSURANCE BILL Comment: A negative anti-HAV IgM result suggests no recent or current HAV infection. Hepatitis B Virus Surface Antigen Negative Negative [facility] INSURANCE BILL Hepatitis B Core Virus Antibody IgM Negative Negative [facility] INSURANCE BILL Hepatitis C Antibody Non Reactive Non Reactive [facility] INSURANCE BILL Comment: Performed at: - [facility] [address] [id number] [employer] Supervisor: Charlie Sahu PhD, Phone: [phone] Interpretation Comment [facility] INSURANCE BILL Comment: Not infected with HCV unless early or acute infection is suspected (which may be delayed in an immunocompromised individual), or other evidence exists to indicate HCV infection. Blood BLOOD SPECIMEN / Unknown 04/19/2024 9:31 AM TINT LAYER 04/19/2024 Narrative [facility] INSURANCE BILL - 04/20/2024 6:10 AM TINT LAYER Performed at: - [facility] [address] [facility], [place], [place] [id number] [employer] Supervisor: Charlie Sahu PhD, Phone: [phone] us Kassandra Landrum MD LAB - CHEMISTRY ORDERABLES Final Result [facility] INSURANCE BILL [address] [place] [address] * (ABNORMAL) MAMMO BILAT DIAGNOSTIC W JOANNA (11/22/2023 10:03 AM CDT) Anatomical Region Laterality Modality Breast Bilateral Mammography 11/22/2023 10:0 3 AM CDT Impressions 11/22/2023 10:41 AM CDT : 1. Probably benign 2.4 cm oval hypoechoic mass in the left axilla, just deep to the scar, likely due to residua from prior postop seroma. 2. Bilateral mammogram and targeted left breast ultrasound with attention to the 7:00 region and area of clinical concern is otherwise benign. RECOMMENDATION: Patient is scheduled for follow-up with Dr. Suazo in the breast clinic today. Either short-term follow-up ultrasound of the left axilla or follow-up PET/CT scan could be performed. If ultrasound is performed, follow-up exam could be performed in 2 3 months time, pending no interval enlargement of this area. Dr. Chua dissussed the results with the patient. She will see Dr. Suazo in the breast clinic today. Patient will also receive the exam results by lay letter. OVERALL ASSESSMENT: BI-RADS CATEGORY 3: PROBABLY BENIGN. > Interpreting Provider: Joycelyn Chua MD on 11/22/2023 10:41 AM Narrative 11/22/2023 10:41 AM CDT EXAMINATIONS: 1. BILATERAL DIGITAL DIAGNOSTIC MAMMOGRAM AND TOMOSYNTHESIS WITH CAD AND 2. LIMITED LEFT BREAST ULTRASOUND (COMBINED REPORT) LOCATION: [facility] EXAM DATE: 11/22/2023 HISTORY: This is a 68-year-old female with history of left breast cancer/grade 1-2 DCIS diagnosed in 03/12/2021, status post left lumpectomy 05/20/2021. Patient had left sentinel node lymph node biopsy 06/03/2021 which was negative. Patient underwent left axillary lymph node biopsy 10/14/2022, demonstrating metastatic carcinoma. PET/CT scan 10/27/2022 demonstrated avid uptake of FDG and a left axillary lymph node. Patient presents today with palpable lump in the left axillary region and left anterior medial breast near the lumpectomy site. COMPARISON: Prior studies back to 2020. MAMMOGRAM: TECHNIQUE: Diagnostic bilateral mammography was performed. Tomosynthesis (3-D) and reconstructed synthetic 2-D images acquired. Images acquired in the craniocaudal and mediolateral oblique projections. In addition, left true lateral and left CC and MLO spot compression views obtained. A total of 9 images were obtained. Computer-aided detection (CAD) was utilized. Triangular-shaped markers placed on palpable abnormalities in the left breast medial to the nipple and axillary region. Scar markers also placed on the left breast. BREAST COMPOSITION: Category C: The breasts are heterogeneously dense which may obscure small masses. FINDINGS: Right side: No suspicious findings or evidence of malignancy. Left side: Status post left breast conservation therapy. No suspicious finding or evidence of malignancy. LIMITED LEFT BREAST ULTRASOUND: Targeted ultrasound performed of the left breast attention to the axillary region were patient feels a lump as well as the 7:00 region near the nipple at the lumpectomy scar. Dr. Chua also scanned the patient. FINDINGS: In the axilla, just deep to the scar is a 2.4 x 1.1 x 1.9 cm oval hypoechoic area, most likely due to post op changes/residua of prior reported seroma with a drain. No blood flow noted to this. No enlarged axillary lymph node or mass otherwise. Targeted ultrasound of the 7:00 periareolar region demonstrates no abnormality. us Leona Suazo MD MAMMO ORDERABLES Final Resu lt * DEXA BONE DENSITY AXIAL SKELETON (01/08/2023 9:03 AM CDT) Anatomical Region Laterality Modality Nuclear Medicine 01/08/2023 9:15 AM CDT Impressions 01/08/2023 9:16 AM CDT IMPRESSION: WHO category: Osteopenia WORLD HEALTH ORGANIZATION DEFINITIONS NORMAL= T-Score at or above -1.0 SD OSTEOPENIA = T-Score between -1 and -2.5 SD OSTEOPOROSIS = T-Score at or below -2.5 SD > Interpreting Provider: Riley Thakkar DO on 01/08/2023 9:16 AM Narrative 01/08/2023 9:16 AM CDT BONE MINERAL DENSITY STUDY: INDICATION: 67-year-old for osteoporosis screening. COMPARISON: DEXA dated 06/30/2021 FINDINGS: The mean bone mineral content of the lumbar spine is 1.136 g/cm2 and T-score is -0.4. The mean bone mineral content of the left femoral neck is 0.868 g/cm2 and T-score is -1.2. The mean bone mineral content of the left total hip is 0.851 g/cm2 and T-score is -1.2. The mean bone mineral content of the right femoral neck is 0.851 g/cm2 and T-score is -1.3. The mean bone mineral content of the right total hip is 0.904 g/cm2 and T-score is -0.8. FRAX 10 year fracture risk Major osteoporotic fracture: 14.9% Hip fracture: 2.8% Procedure Note Riley Thakkar DO - 01/08/2023 BONE MINERAL DENSITY STUDY: INDICATION: 67-year-old for osteoporosis screening. COMPARISON: DEXA dated 06/30/2021 FINDINGS: The mean bone mineral content of the lumbar spine is 1.136 g/cm2 and T-score is -0.4. The mean bone mineral content of the left femoral neck is 0.868 g/cm2and T-score is -1.2. The mean bone mineral content of the left total hip is 0.851 g/cm2 and T-score is -1.2. The mean bone mineral content of the right femoral neck is 0.851 g/cm2and T-score is -1.3. The mean bone mineral content of the right total hip is 0.904 g/cm2 and T-score is -0.8. 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
== END 2024-10-18 08:16 | disposition home or self-care (01) ==
PROVIDERS: PCP Family Medicine; Visit Provider Family Medicine
DX: M54.9 Dorsalgia, unspecified (principal); R14.0 Abdominal distension (gaseous); M48.04 Spinal stenosis, thoracic region; M43.06 Spondylolysis, lumbar region
CPT/HCPCS: 72072; 72100; 74018

== ENCOUNTER 2024-12-08 09:34 | Outpatient (CLI) | payer MEDICARE, SELFPAY ==
--- NOTE | ~2024-12-08 | DEXA_ITS ---
Bone Density Report Name: MEEK DASH Age: 69 Sex: Female Ethnicity: White Date of : 1955 Indication: postmenopausal; screening for osteoporosis; height loss; history of glucocorticoids; prior fracture; cancer; hysterectomy; rheumatoid arthritis; secondary osteoporosis; Referring Provider: CONNOR MCCALL Study: Bone densitometry was performed. Exam Date: December 08, 2024 Accession number: [id number] Bone Density: Region BMD T-score Z-score Classification AP Spine(L1-L4) 1.020 -0.2 1.9 Normal Femoral Neck (Right) 0.753 -0.9 1.0 Normal Total Hip (Right) 0.875 -0.5 1.0 Normal World Health Organization criteria for BMD impression classify patients as: Normal (T-score at or above -1.0), Osteopenia (T-score between -1.0 and -2.5), or Osteoporosis (T-score at or below -2.5). 10-year Fracture Risk: FRAX not reported because: All T-scores for Spine Total, Hip Total, Femoral Neck at or above -1.0 Treated for osteoporosis Clinical Information Provided by Patient: Has had a low trauma fracture Has taken Glucocorticoids Has rheumatoid arthritis Has secondary osteoporosis Is being treated for osteoporosis Has used the following medications: Prolia (i.e. denosumab), Vitamin D, Calcium Has the following medical conditions: Cancer, Hysterectomy Patient maximum height was 66 Menopause Age: 35 Does not regularly consume dairy products Drinks caffeinated beverages Onset of menses at age 12 Missed period for more than 6 months in a row Impression: The patient has normal bone mass. The patient has risk factors, including: previous fracture, history of glucocorticoid therapy. Discussion: It is important to ask patients whether they are taking their medications and to encourage continued and appropriate compliance with their osteoporosis therapies to reduce fracture risk. It is also important to review their risk factors and encourage appropriate calcium and vitamin D intakes, exercise, fall prevention and other lifestyle measures. Follow-Up: Consider a repeat BMD and Vertebral Fracture Assessment (VFA) exam in 2 years or sooner if medically necessary, to reassess this patient's status. Reported by: JUAN DANIEL on 12/08/2024 10:15:00 AM. Reviewed, dictated and finalized at location A.
--- OUTSIDE RECORDS SUMMARY | 2024-12-08 09:38 | XMS_ITS ---
Author Organization [facility] Address [address] [place] [address] Care Team Providers Care Client Server Developer Name Role Phone Tong Riggs MD Primary Care Provider [phone] Matthieu Fortune MD PhD Unavailable [phone] Leona Suazo MD Unavailable Kunal Ramos MD Unavailable Carlos Crook MD Unavailable [phone] Active Problems Problem Noted Date Diagnosed Date Chronic gastric ulcer withou t hemorrhage and without perforation 04/18/2024 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 04/10/2024 Gastroesophageal reflux disease 01/18/2024 Anemia 01/18/2024 Vitamin D deficiency, unspecified 06/09/2022 Personal history of colonic polyps 03/24/2022 Overview (03/24/2022): Added automatically from request for surgery [id number] Nausea 03/24/2022 Overview (03/25/2022): Added automatically from request for surgery [id number] Heartburn 03/24/2022 Overview (03/25/2022): Added automatically from request for surgery [id number] Osteopenia 11/28/2021 Malignant neoplasm of lower- inner quadrant of left breast in female, estrogen receptor positive 07/30/2021 Cancer Staging:Pathologic stage from 07/30/2021:Stage IA(pT1b, pN0(sn), cM0, G2, ER+, CT+, HER2-, Oncotype DX score: 25) - Signed by Matthieu Fortune MD PhD on 07/30/2021 Pathologic stage from 11/23/2022: pN1a, cM0, ER+, CT+, HER2- - Signed by Matthieu Fortune MD PhD on 05/27/2023 Adenomatous polyp of ascending colon 02/14/2021 Overview (02/14/2021): Added automatically from request for surgery [id number] Encounter for screening colonoscopy 01/21/2021 Overview (01/21/2021): Added automatically from request for surgery [id number] Acute pancreatitis without infection or necrosis 01/15/2021 Overview (01/15/2021): Added automatically from request for surgery [id number] Current Treatment and Therapy Plans No current [...]
--- OUTSIDE RECORDS SUMMARY | 2024-12-08 09:38 | XMS_ITS | Encounter Summary ---
Author Organization [facility] Address [address] [place] [address] Phone Care Team Providers Care Manager Qa Name Role Phone Tong Riggs MD Primary Care Provider [phone] Matthieu Fortune MD PhD Unavailable Leona Suazo MD Unavailable [phone] Kunal Ramos MD Unavailable Carlos Croko MD Unavailable [phone] Encounter Details Date Type Department Care Team [...] on filedocumented in this encounter Care Teams Manager Qa Relationship Specialty Start Date End Date Tong Riggs MD PCP - General Family Practice 12/23/20 Matthieu Fortune MD PhD [address] [place] [address] Radiation Oncologist Radiation Oncology 07/30/21 Leona Suazo MD [address] [place] [facility], [place] [address] Consulting Physician General Surgery 07/30/21 Kunal Ramos MD [address] [facility] [address] [place] [address] Referring Physician Internal Medicine 07/30/21 Carlos Crook MD [address] [address] Surgeon Orthopedic Surgery 02/16/24 documented as of this encounter
--- OUTSIDE RECORDS SUMMARY | 2024-12-08 09:38 | XMS_ITS | Referral Summary ---
Author Organization [facility] Address [address] [place] [address] Care Team Providers Care Aerosol Supervisor Name Role Phone Tong Riggs MD Primary Care Provider [phone] Matthieu Fortune MD PhD Unavailable [phone] Leona Suazo MD Unavailable [phone] Kunal Ramos MD Unavailable Carlos Crook MD Unavailable [phone] Encounters Date Type Department Care Team Description 10/17/2024 1:00 PM CDT Office Visit [facility] Gastroenterology [address] [place] [address] Medical Office Building [address] [place] [address] Geraldine Lock PA Heartburn (Primary Dx); Gastroesophageal reflux disease, unspecified whether esophagitis present; Chronic gastric ulcer without hemorrhage and without perforation; Constipation, unspecified constipation type 10/08/2024 Results Follow-Up [facility] [address] [place] [address] Eloise Valentin, IDA Urine culture Urine, clean voided 10/07/2024 8:32 AM CDT - 10/07/2024 11:59 PM CDT Hospital Encounter [address] [id number] UTI symptoms Discharge Disposition: Discharge to home or self care 10/07/2024 8:30 AM CDT Office Visit [facility] [address] [place] [address] Jerri Juarez NP UTI symptoms (Primary [...] Units total) by mouth daily Active vitamins A,C,W-tuig-mlcujx (ICAPS) 4,296 mcg-226 mg-90 mg capsule Take [...] (DELTASONE) 5 mg tablet 09/23/19 25 Active Active Problems Problem Noted Date Diagnosed Date Chronic gastric ulcer withou t hemorrhage and without perforation 04/18/2024 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 04/10/2024 Gastroesophageal reflux disease 01/18/2024 Anemia 01/18/2024 Vitamin D deficiency, unspecified 06/09/2022 Personal history of colonic polyps 03/24/2022 Overview (03/24/2022): Added automatically from request for surgery [id number] Nausea 03/24/2022 Overview (03/25/2022): Added automatically from request for surgery [id number] Heartburn 03/24/2022 Overview (03/25/2022): Added automatically from request for surgery [id number] Osteopenia 11/28/2021 Malignant neoplasm of lower- inner quadrant of left breast in female, estrogen receptor positive 07/30/2021 Cancer Staging:Pathologic stage from 07/30/2021:Stage IA(pT1b, pN0(sn), cM0, G2, ER+, MD+, HER2-, Oncotype DX score: 25) - Signed by Matthieu Fortune MD PhD on 07/30/2021 Pathologic stage from 11/23/2022: pN1a, cM0, ER+, MD+, HER2- - Signed by Matthieu Fortune MD PhD on 05/27/2023 Adenomatous polyp of ascending colon 02/14/2021 Overview (02/14/2021): Added automatically from request for surgery [id number] Encounter for screening colonoscopy 01/21/2021 Overview (01/21/2021): Added automatically from request for surgery [id number] Acute pancreatitis without infection or necrosis 01/15/2021 Overview (01/15/2021): Added automatically from request for surgery [id number] Resolved Problems Problem Noted Date Diagnosed Date [...] on file Medical Devices Implanted Type Area Flasher Adjuster Device Identifier Shelf Expiration Date Model / Serial / Lot [employer] Shell Acetabular Hip Porous 3 Hole Coated Emphasys 50mm Titanium [id number] - [id number] Implanted:Qty: 1 on 02/16/2024 by Carlos Crook MD at [facility] Left: Hip [employer] [id number] 12/07/2033 [id number] / / [id number] [employer] Liner Acetabular Hip Standard Emphasys Aox 41n95pc Polyethylene [id number] - [id number] Implanted:Qty: 1 on 02/16/2024 by Carlos Crook MD at [facility] Left: Hip [employer] [id number] 12/07/2028 [id number] / / [id number] [employer] Actis 105mm Collar Hip 5 High Offset Stem Femoral [id number] - [id number] Implanted:Qty: 1 on 02/16/2024 by Carlos Crook MD at [facility] Left: Hip [employer] [id number] 11/06/2033 [id number] / / [id number] [employer] Articul/[place] 36mm Cementless Hip +1.5mm 12/14 Taper Head Femoral Latex Free [id number] - [id number] Implanted:Qty: 1 on 02/16/2024 by Carlos Crook MD at [facility] Left: Hip [employer] [id number] 10/07/2028 [id number] / / [id number] Procedures Procedure Name Priority Date/Time Associated Diagnosis Comments POCT URINALYSIS DIPSTICK Routine 10/07/2024 8:39 AM CDT UTI symptoms URINE CULTURE Routine 10/07/2024 8:32 AM CDT UTI symptoms COLONOSCOPY 03/30/2022 1:45 PM RECRUITMENT CONSULTANT from Last 3 Months or Most Recently Relevant to Health Maintenance Results * POCT urinalysis dipstick (10/07/2024 8:39 AM CDT) Color, Urine, POC Yellow Clarity, ur, POC Clear Clear Glucose, ur, POC Negative Negative Bilirubin, ur, POC Negative Negative Ketones, ur, POC Negative Negative Specific [place], POC 1.005 1.003 - 1.030 Blood, ur, POC Negative Negative pH, ur, POC 6.0 5.0 - 8.0 Protein, ur, POC Negative Negative Urobilinogen, urine, POC 0.2 0.2 - 1.0 mg/dL Nitrite, ur, POC Negative Negative Leukocytes, ur, POC Negative Negative Lot Number [id number] Urine 10/07/2024 8:39 AM CDT Jerri Juarez NP POINT OF CARE TEST BARTOLOME ALMEIDA Final Result * Urine culture Urine, clean voided (10/07/2024 8:32 AM CDT) Report Final Report: Less than 100,000 colonies/mL (clinically insignificant growth based on current clinical standards) Comment:Testing performed by : [facility], [address] [place]., [address] Organism (CLINICALLY INSIGNIFICANT GROWTH ADITYA Urine, clean voided 10/07/2024 8:32 AM CDT 10/07/2024 6:23 PM CDT Narrative ADITYA BAGLEY - 10/08/2024 7:25 PM CDT Testing performed by [facility] ([phone]) Jerri Juarez NP LAB MICROBIOLOGY - GENE RAL ORDERABLES Final Result ADITYA [address] Department [place] [address] * COLONOSCOPY (03/30/2022 1:45 PM RECRUITMENT CONSULTANT) Anatomical Region Laterality Modality Other Narrative Procedure Note Yeyo Hu MD - 03/30/2022 1:45 PM CST ENDOSCOPY LAB Patient Name: Latanya Dangelo Procedure Date: 03/30/2022 1:45 PM Admit Type: Outpatient Room: [facility] Date of : 1955 Instrument Name: [id number] [...] Recently Relevant to Health Maintenance Insurance MEDICARE [facility] [place] [address] MEDICARE COMMERCIAL GENERIC MEDICARE BLUE [employer]OSS MEDICARE SUPPLEMENT Advance Directives For more information, please contact: [phone] * Full Code (Latest Code Status on [...] 8:56 AM 03/17/2021 3:05 PM Care Teams Aerosol Supervisor Relationship Specialty Start Date End Date Tong Riggs MD PCP - General Family Practice 12/23/20 Matthieu Fortune MD PhD [address] [place] [address] Radiation Oncologist Radiation Oncology 07/30/21 Leona Suazo MD [address] 1ST OR SURGERY 1ST OR, [place] [address] Consulting Physician General Surgery 07/30/21 [place] [address] [place] [address] Referring Physician Internal Medicine 07/30/21 Carlos Crook MD [address] [place] [address] [address], [place] [address] Surgeon Orthopedic Surgery 02/16/24
--- OUTSIDE RECORDS SUMMARY | 2024-12-08 09:38 | XMS_ITS | Clinical Summary ---
Author Organization [facility] Address [address] [place] [address] Care Team Providers Care Rf Manager Name Role Phone Tong Riggs MD Primary Care Provider [phone] [facility],non-owned Affiliates and Associated Physician Practices is amultiple site organization consisting of ambulatory clinics and hospital sitesin [place], [place], [place] and [place]. This disclosure is being madepursuant to the Care Everywhere program and may not contain all information available regarding this patient. Last updated 18.[facility] Allergies Active Allergy Reactions Criticality Noted Date Comments Contrast-Iodinated Agents Fo r Ct/Other Anaphylaxis High 04/15/2021 Penicillins Anaphylaxis High 01/15/2021 Sulfa Drugs Urticaria,Anaphylaxis High 06/15/2019 Medications * Be aware that medications may not be up to date on this document. Alwaysverify current medications with the patient. ondansetron, disintegratin g, (ZOFRAN ODT) 8 MG tablet 021 Active tiZANidine (ZANAFLEX) 4 MG tablet 021 Active B Complex Vitamins (VITAMIN B COMPLEX) tablet Take 1 (one) tablet by mouth once daily Active ascorbic acid (VITAMIN C) 125 MG TABS half tablet Take 8 (eight) Half Tablet by mouth once daily Active Denosumab (PROLIA SC) 022 Active Multiple Vitamins-Mine rals (RA VISION-GINGER PRESERVE PO) Take by mouth once daily Active vitamin D (Cholecacifer ol) 125 MCG (5000 UT) capsule Take 1 (one) capsule by mouth once daily Active atorvastatin (Lipitor) 10 MG tablet Take 1 (one) tablet by mouth once daily 023 Active sennosides (Senokot) 8.6 MG tablet Take 2 (two) tablets by mouth 2 times daily Active calcium-magne sium-zinc 333-133-5 MG tablet Take 1 (one) tablet by mouth once daily Active naloxone HCl (Narcan) 4 MG/0.1ML nasal spray 023 Active Multiple Vitamin (MULTI-VITAMI N DAILY PO) Active pantoprazole EC (Protonix) 40 MG tablet Take 1 (one) tablet by mouth 2 times daily 30 tablet 4 023 Active prochlorperaz ine (Compazine) 10 MG tabletIndicat ions:Malignan t neoplasm of central portion of left breast in female, estrogen receptor positive (HCC) Take 1 (one) tablet by mouth every 6 hours as needed for Nausea/Vomiting 30 tablet 6 024 Active doxepin (SINEquan) 25 MG capsule TAKE 1 CAPSULE BY MOUTH EVERY DAY AT BEDTIME 024 Active tamoxifen (Nolvadex) 20 MG tablet Take 1 (one) tablet by mouth once daily -90 day supply 90 tablet 4 024 Active adalimumab (Humira) 40 MG/0.4ML injectionIndi cations:Rheum atoid arthritis involving multiple sites with positive rheumatoid factor (HCC) Inject 0.4 mL subcutaneously every 14 days 0.8 mL 5 025 Active pregabalin (Lyrica) 100 MG capsule Take 1 (one) capsule by mouth 3 times daily 90 capsule 4 025 Active famotidine (Pepcid) 20 MG tablet TAKE 1 TABLET BY MOUTH AT MIDNIGHT FOR REFLUX TYPE SYMPTOMS 90 tablet 1 025 Active methotrexate 2.5 MG tabletIndicat ions:Rheumato id arthritis involving multiple sites with positive rheumatoid factor (HCC) TAKE 3 (THREE) TABLETS BY MOUTH EVERY 7 DAYS 12 tablet 2 025 Active folic acid (Folvite) 1 MG tabletIndicat ions:High risk medication use TAKE 1 TABLET BY MOUTH EVERY DAY 90 tablet 3 Active azithromycin (Zithromax) 250 MG tablet TAKE 2 TABLETS BY MOUTH TODAY, THEN TAKE 1 TABLET DAILY FOR 4 DAYS DIRECTED Active acetaminophen -codeine (Tylenol #4) 300-60 MG tablet Active predniSONE (Deltasone) 2.5 MG tablet Take 1.5 (one and one-half) tablets by mouth once daily for 14 days, THEN 1 (one) tablet once daily. 90 tablet 025 2025 Active oxyCODONE-hosea taminophen (Percocet) 7.5-325 MG tablet Take 1 (one) tablet by mouth every 4 hours as needed 2024 Discontinued(T x Complete) ferrous sulfate EC 325 (65 Fe) MG tablet Take by mouth 2 times daily 2024 Discontinued(T x Complete) folic acid (Folvite) 1 MG tabletIndicat ions:High risk medication use Take 1 (one) tablet by mouth once daily 30 tablet 2 025 2024 Discontinued predniSONE (Deltasone) 5 MG tabletIndicat ions:Rheumato id arthritis involving multiple sites with positive rheumatoid factor (HCC) Take 1 (one) tablet by mouth once daily 30 tablet 2 025 2024 Discontinued(C linical Decision) Active Problems Problem Noted Date Diagnosed Date Cigarette smoker 06/09/2022 Vitamin D deficiency, unspecified 06/09/2022 Osteopenia 11/28/2021 Malignant neoplasm of centra l portion of left breast in female, estrogen receptor positive 04/15/2021 Cancer Staging:Clinical stage from 03/12/2021:Stage 0(cTis (DCIS), cN0, cM0, ER+, KY+, HER2: Not Assessed) - Signed by Leona Suazo MD on 04/15/2021 Pathologic stage from 05/20/2021:Stage IA(pT1b, pN0(sn), cM0, G2, ER+, KY+, HER2: Equivocal) - Signed by Leona Suazo MD on 06/25/2021 Encounters Date Type Department Care Team Description 12/06/2024 10:00 AM CDT Office Visit [facility] - Rheumatology [address] [place] [address], [address] [place] [address] Kassandra Landrum MD Rheumatoid arthritis involving multiple sites with positive rheumatoid factor (HCC) (Primary Dx) 12/04/2024 10:30 AM CDT Office Visit [facility] - General Surgery [address] [place] [phone] Leona Suazo MD Malignant neoplasm of central portion of left breast in female, estrogen receptor positive (HCC) (Primary Dx); Breast cancer screening by mammogram 12/04/2024 9:20 AM CDT - 12/04/2024 11:59 PM CDT Hospital Encounter [address] [address] Tong Riggs MD Discharge Disposition: Home or Self Care 12/04/2024 9:20 AM CDT - 12/04/2024 11:59 PM CDT Hospital Encounter [address] [address] Leona Suazo MD Discharge Disposition: Home or Self Care 12/04/2024 Travel 12/02/2024 Refill [facility] - Rheumatology [address] [place] [address], [address] [place] [address] Kassandra Landrum MD Refill Request 11/04/2024 Refill [facility] - Rheumatology [address] [place] [address], [address] [place] [address] Kassandra Landrum MD Refill Request 10/18/2024 1:20 PM CDT Office Visit [facility] [address] [place] [address] Kunal Ramos MD Malignant neoplasm of central portion of left breast in female, estrogen receptor positive (HCC) (Primary Dx); History of pancreatitis; Vitamin D deficiency, unspecified; Osteopenia of multiple sites; Drug-induced peripheral neuropathy (HCC); Multiple lung nodules; Cigarette smoker 10/18/2024 12:39 PM CDT - 10/18/2024 11:59 PM CDT Hospital Encounter [facility] [address] [place] [address], [address] [address] Kunal Ramos MD Discharge Disposition: Home or Self Care 10/18/2024 Travel 10/06/[address] [place] [phone] Kunal Ramos MD Appointment 09/21/2024 Refill [facility] - Rheumatology [address] [place] [address], [address] [place] [phone] Kassandra Landrum MD MEDICATION REFILL 09/20/[address] [address] Kunal Ramos MD MEDICATION REFILL 09/20/[address] [address] Kunal Ramos MD MEDICATION REFILL 09/20/[address] [address] Kunal Ramos MD Refill Request 09/10/2024 Refill [facility] Rheumatology [address] [place] [address], [address] [phone] Kassandra Landrum MD Med Change Request from Last 3 Months Immunizations Immunization Administration Dates Next Due Covid [employer] primary monovalent 12+ yr 0.3mL Pur ple [...] Cigarettes Smokeless Tobacco: Never Tobacco Cessation:Counseling Given: No Comments:Quit smoking 01/09/24 Alcohol Use Standard Drinks/Week [...] Date Recorded Patient Health Questionnaire-2 Score 0 10/18/2024 Comments No Sex and Gender Information Value Date Recorded Sex Assigned at Female 05/23/2021 4:05 PM [employer] Legal Sex Female 8:16 AM CDT Gender Identity Female 05/23/2021 4:05 PM [employer] Sexual Orientation Straight 05/23/2021 4: 05 PM [employer] Travel History Travel Start Travel End [facility] 11/13/2024 11/30/2024 Last Filed Vital Signs Vital Sign Reading Time Taken Comments Blood Pressure 124/78 12/06/2024 10:08 AM CDT Pulse 80 12/06/2024 10:08 AM CDT Temperature 36.5 C (97.7 F) 12/06/2024 10:08 AM CDT Respiratory Rate 16 08/02/2024 10:10 AM CDT Oxygen Saturation 96% 12/06/2024 10:08 AM CDT Inhaled Oxygen Concentration 40% 11/13/2022 3 :57 PM CDT Weight 98 kg (216 lb) 12/06/2024 10:08 AM CDT Height 167.6 cm (5' 6) 12/06/2024 10:08 AM CDT Body Mass Index 34.86 12/06/2024 10:08 AM CDT Plan of Treatment Upcoming Encounters Date Type Department Care Team (Late st Contact Info) Description 12/22/2024 11:20 AM CDT Appointment [facility] [address] [place] [address] 01/18/2025 12:30 PM CDT Appointment [facility] [address] [place] [phone] Kunal Ramos MD [address] [place] [address] 01/18/2025 12:40 PM CDT Documentation [facility] [address] [place] [phone] 01/18/2025 1:00 PM CDT Office Visit [facility] [address] [place] [address] Kunal Ramos MD [address] [address] 04/16/2025 11:40 AM [employer] Office Visit [facility] Medical [facility] - Rheumatology [address] [place] [address], [address] [place] [phone] Kassandra Landrum MD [address] [place] [phone] 12/06/2025 9:30 AM CDT Appointment [address] [address] Leona Suazo MD [address] [facility] [address] [place] [phone] 12/06/2025 10:00 AM CDT Office Visit [facility] - General Surgery [address] [place] [phone] Leona Suazo MD [address] [place] [phone] Health Maintenance Due Date Last Done Comments [...] 2 - PCV) 01/30/2022 01/30/2021 COVID-19 VACCINE ( season) 2024 08/07/2021, 02/17/2021, 07/13/2020, Additional history exists INFLUENZA VACCINE (#1) 2025 MAMMOGRAM 12/04/2026 12/04/2024, 11/07, 10/12/2022, Additional history exists SCREENING FOR DIABETES 10/19/2027 , 08/07/2024, 07/07/2024, Additional history exists Respiratory Syncytial Virus (RSV) [...] this topic Medical Devices Implanted Type Area Tool Lapper Hand Device Identifier Shelf Expiration Date Model / Serial / Lot Port Implinfn Powerport Isp Mri Argd - [id number] Implanted:Qty: 1 on 11/13/2022 by Leona Suazo MD at [facility] [employer] 04/08/2023 [id number] / [id number] / [id number] Mrkr 17ga Rgd Ndl Radopq Ultracor Twirl Implanted:Qty: 1 on 07/27/2024 by Joycelyn Chua MD at [facility] Left: Axilla [employer] [id number] 02/04/2027 [id number] / / Procedures Procedure Name Priority Date/Time Associated Diagnosis Comments US BREAST BILATERAL LTD Routine 12/04/2024 11:22 AM CDT Abnormal mammogram MAMMO BILAT DIAGNOSTIC W HAMMAD Routine 12/04/2024 10:43 AM CDT Breast cancer screening by mammogram CBC W AUTO DIFFERENTIAL ([facility]) Routine 10/18/2024 1:13 PM CDT Malignant neoplasm of central portion of left breast in female, estrogen receptor positive (HCC) History of pancreatitis LDH BLOOD Routine 10/18/2024 1:13 PM CDT Malignant neoplasm of central portion of left breast in female, estrogen receptor positive (HCC) History of pancreatitis COMPREHENSIVE METABOLIC PANEL Routine 10/18/2024 1:13 PM CDT Malignant neoplasm of central portion of left breast in female, estrogen receptor positive (HCC) History of pancreatitis HEPATITIS SCREEN ACUTE ([facility]) Routine 04/19/2024 9:31 AM [employer] Rheumatoid arthritis involving multiple sites with positive rheumatoid factor Encounter for other specified special examinations DEXA BONE DENSITY AXIAL SKELETON Routine 01/08/2023 9:03 AM CDT Malignant neoplasm of central portion of left breast in female, estrogen receptor positive Other specified disorders of bone density and structure, other site from Last 3 Months or Most Recently Relevant to Health Maintenance Results * US BREAST BILATERAL LTD (Diagnostic, most commonly ordered) (12/04/2024 11:22 AM CDT) Anatomical Region Laterality Modality Breast Bilateral Ultrasound 12/04/2024 11:0 8 AM CDT Impressions 12/04/2024 1:16 PM CDT IMPRESSION: No bilateral mammographic or targeted right breast and left axillary sonographic evidence of malignancy. RECOMMENDATION: Screening mammography in one year, pending no interval breast concerns. Dr. Chua discussed the examination results and recommendations with the patient at the time of the study. They expressed understanding and will see Dr. Suazo in the breast clinic today. Patient will also receive examination results by lay letter. OVERALL ASSESSMENT: BI-RADS CATEGORY 2: BENIGN. Report dictated by Nestor Brandon MD(radiology nurse). > Dictated by Nestor Brandon MD 12/04/2024 11:08 AM > Dictated by Patient Service Representative I, Joycelyn Chua MD, FACR have personally reviewed and interpreted this examination/study. > Interpreting Provider: Joycelyn Chua MD, FACR on 12/04/2024 1:16 PM Narrative 12/04/2024 1:16 PM CDT EXAMINATIONS: 1. BILATERAL DIGITAL DIAGNOSTIC MAMMOGRAM AND BILATERAL BREAST TOMOSYNTHESIS AND 2. LIMITED RIGHT BREAST AND LEFT AXILLARY ULTRASOUND (COMBINED REPORT) LOCATION: [facility] EXAM DATE: 12/04/2024 HISTORY: 69-year-old female with pertinent history of left breast grade 1 DCIS diagnosed 03/12/2021, status post left breast conservation therapy (05/20/2021), status post left sentinel lymph node biopsy (06/03/2021) which was negative. Patient underwent left axillary lymph node biopsy (10/27/2022) demonstrating metastatic carcinoma. PET/CT (10/27/2022) demonstrating left axillary lymph node FDG avidity. Subsequent left axillary lymph node dissection (11/13/2022), patient was revealing for a solitary metastatic node in 1 out of 14 lymph nodes. PET/CT scan 07/20/2024 demonstrated increased uptake of FDG within the left axilla near the post surgical seroma. Patient underwent biopsy of the left axilla on 07/27/2024 which demonstrated fibrous scar tissue with reactive fibrosis and proteinaceous fluid suggestive of seroma. Family history of breast cancer in mother and paternal grandmother. Of note, patient feels a new palpable lump in her right breast for the past 2 weeks. COMPARISON: Prior breast studies back to 01/09/21 performed at [facility], most recently left diagnostic mammogram dated 06/05/2024 and left axillary ultrasound biopsy dated 07/27/[address] [facility] MAMMOGRAM: TECHNIQUE: Diagnostic bilateral mammography was performed. Tomosynthesis (3-D) and reconstructed synthetic 2-D images acquired. Right CC, CC nipple in profile, MLO, spot compression views and left CC, CC nipple and profile, MLO, MLO nipple in profile views were obtained. A total of 10 images were obtained. Transpara AI was utilized in the interpretation of this exam. Triangular-shaped marker placed on a palpable abnormality in the right breast. Scar marker placed in the right axillary region over a port. Mole marker placed on the left. BREAST COMPOSITION: Category B: There are scattered areas of fibroglandular density. FINDINGS: There are no suspicious finding or mammographic evidence of malignancy. There is no significant change from the prior study. Partially seen right chest port. Changes of breast conservation therapy noted in the left breast. LIMITED RIGHT BREAST AND LEFT AXILLARY ULTRASOUND: Right breast: Scanning performed at 5 o'clock region, 5 cm from the nipple, at the region of patient's clinical palpable abnormality. Dr. Chua also scanned the patient. Left breast: The left axilla was scanned. FINDINGS: Right side: Targeted sonographic examination of the right breast demonstrates no suspicious findings or evidence of malignancy. There is no mass in the area of clinical concern. Left side: There has been interval resolution of previously seen seroma in the left axilla. No mass is identified. There are no morphologically abnormal lymph nodes in the left axilla. Biopsy clip is noted in the left axilla. us Leona Suazo MD ORDERABLES Final Resul t * Mammo Bilat Diagnostic W Hammad (12/04/2024 10:43 AM CDT) Anatomical Region Laterality Modality Breast Bilateral Mammography 12/04/2024 11:0 8 AM CDT Impressions 12/04/2024 1:16 PM CDT IMPRESSION: No bilateral mammographic or targeted right breast and left axillary sonographic evidence of malignancy. RECOMMENDATION: Screening mammography in one year, pending no interval breast concerns. Dr. Chua discussed the examination results and recommendations with the patient at the time of the study. They expressed understanding and will see Dr. Suazo in the breast clinic today. Patient will also receive examination results by lay letter. OVERALL ASSESSMENT: BI-RADS CATEGORY 2: BENIGN. Report dictated by Nestor Brandon MD(radiology nurse). > Dictated by Nestor Brandon MD 12/04/2024 11:08 AM > Dictated by Patient Service Representative I, Joycelyn Chua MD, FACR have personally reviewed and interpreted this examination/study. > Interpreting Provider: Joycelyn Chua MD, FACR on 12/04/2024 1:16 PM Narrative 12/04/2024 1:16 PM CDT EXAMINATIONS: 1. BILATERAL DIGITAL DIAGNOSTIC MAMMOGRAM AND BILATERAL BREAST TOMOSYNTHESIS AND 2. LIMITED RIGHT BREAST AND LEFT AXILLARY ULTRASOUND (COMBINED REPORT) LOCATION: [facility] EXAM DATE: 12/04/2024 HISTORY: 69-year-old female with pertinent history of left breast grade 1 DCIS diagnosed 03/12/2021, status post left breast conservation therapy (05/20/2021), status post left sentinel lymph node biopsy (06/03/2021) which was negative. Patient underwent left axillary lymph node biopsy (10/27/2022) demonstrating metastatic carcinoma. PET/CT (10/27/2022) demonstrating left axillary lymph node FDG avidity. Subsequent left axillary lymph node dissection (11/13/2022), patient was revealing for a solitary metastatic node in 1 out of 14 lymph nodes. PET/CT scan 07/20/2024 demonstrated increased uptake of FDG within the left axilla near the post surgical seroma. Patient underwent biopsy of the left axilla on 07/27/2024 which demonstrated fibrous scar tissue with reactive fibrosis and proteinaceous fluid suggestive of seroma. Family history of breast cancer in mother and paternal grandmother. Of note, patient feels a new palpable lump in her right breast for the past 2 weeks. COMPARISON: Prior breast studies back to 01/09/21 performed at [facility], most recently left diagnostic mammogram dated 06/05/2024 and left axillary ultrasound biopsy dated 07/27/[address] [facility] MAMMOGRAM: TECHNIQUE: Diagnostic bilateral mammography was performed. Tomosynthesis (3-D) and reconstructed synthetic 2-D images acquired. Right CC, CC nipple in profile, MLO, spot compression views and left CC, CC nipple and profile, MLO, MLO nipple in profile views were obtained. A total of 10 images were obtained. Transpara AI was utilized in the interpretation of this exam. Triangular-shaped marker placed on a palpable abnormality in the right breast. Scar marker placed in the right axillary region over a port. Mole marker placed on the left. BREAST COMPOSITION: Category B: There are scattered areas of fibroglandular density. FINDINGS: There are no suspicious finding or mammographic evidence of malignancy. There is no significant change from the prior study. Partially seen right chest port. Changes of breast conservation therapy noted in the left breast. LIMITED RIGHT BREAST AND LEFT AXILLARY ULTRASOUND: Right breast: Scanning performed at 5 o'clock region, 5 cm from the nipple, at the region of patient's clinical palpable abnormality. Dr. Chua also scanned the patient. Left breast: The left axilla was scanned. FINDINGS: Right side: Targeted sonographic examination of the right breast demonstrates no suspicious findings or evidence of malignancy. There is no mass in the area of clinical concern. Left side: There has been interval resolution of previously seen seroma in the left axilla. No mass is identified. There are no morphologically abnormal lymph nodes in the left axilla. Biopsy clip is noted in the left axilla. us Leona Suazo MD MAMMO ORDERABLES Final Resu lt * (ABNORMAL) CBC W AUTO DIFFERENTIAL ([facility]) (10/18/2024 1:13 PM CDT) WBC 7.0 4.4 - 10.7 x10E9/L 10/18/2024 1:17 PM CDT [facility] Neutrophils % 74.7(H) 44.0 - 73.0 % 10/18/2024 1:17 PM CDT [facility] Lymphocytes % 20.1 20.0 - 43.0 % 10/18/2024 1:17 PM CDT [facility] Monocytes % 4.3(L) 5.0 - 13.0 % 10/18/2024 1:17 PM CDT [facility] Eosinophils % 0.1 0.0 - 6.0 % 10/18/2024 1:17 PM CDT [facility] Basophils % 0.4 0.0 - 2.0 % 10/18/2024 1:17 PM CDT [facility] Immature Granulocytes 0.4 <=1 % 10/18/2024 1:17 PM CDT [facility] Neutrophil Absolute 5.24 2.01 - 7.14 x10E9/L 10/18/2024 1:17 PM CDT [facility] Lymphocytes Absolute 1.41 1.07 - 3.94 x10E9/L 10/18/2024 1:17 PM CDT [facility] Monocytes Absolute 0.30 0.26 - 1.07 x10E9/L 10/18/2024 1:17 PM CDT [facility] Eosinophils Absolute 0.01 0 - 0.47 x10E9/L 10/18/2024 1:17 PM CDT [facility] Basophils Absolute 0.03 0 - 0.08 x10E9/L 10/18/2024 1:17 PM CDT [facility] RBC 3.86 3.80 - 5.20 x10E12/L 10/18/2024 1:17 PM CDT [facility] Hemoglobin 12.4 12.0 - 15.6 gm/dL 10/18/2024 1:17 PM CDT [facility] Hematocrit 37.4 35.9 - 45.5 % 10/18/2024 1:17 PM CDT [facility] MCV 96.9 80.7 - 98.3 fl 10/18/2024 1:17 PM CDT [facility] MCH 32.1 26.7 - 34.0 pg 10/18/2024 1:17 PM CDT [facility] MCHC 33.2 30.8 - 35.9 gm/dL 10/18/2024 1:17 PM CDT [facility] RDW-CV 15.3(H) 12.1 - 14.9 % 10/18/2024 1:17 PM CDT [facility] Platelet Count 292 153 - 416 x10E9/L 10/18/2024 1:17 PM CDT [facility] MPV 9.3(L) 9.4 - 12.9 fl 10/18/2024 1:17 PM CDT [facility] NRBC 0.0 <=0 /100 WBC 10/18/2024 1:17 PM CDT [facility] Blood BLOOD SPECIMEN / Unknown 10/18/2024 1:13 PM CDT 10/18/2024 1:13 PM CDT Kunal Ramos MD LAB - HEMATOLOGY ORDERABLES Marni l Result [facility] [address] [place] [address], [facility] * (ABNORMAL) COMPREHENSIVE METABOLIC PANEL (10/18/2024 1:13 PM CDT) Pathologist [facility] Glucose 133(H) 70 - 99 mg/dL [facility] INSURANCE BILL BUN 16 7 - 26 mg/dL [facility] INSURANCE BILL Creatinine 0.72 0.57 - 1.11 mg/dL [facility] INSURANCE BILL eGFR by CKD-EPI 90 >=90 mL/min/1.7 3 m2 [facility] INSURANCE BILL Sodium 143 136 - 145 mmol/L [facility] INSURANCE BILL Potassium 4.3 3.5 - 5.1 mmol/L [facility] INSURANCE BILL Chloride 109(H) 98 - 107 mmol/L [facility] INSURANCE BILL CO2 25 22 - 29 mmol/L [facility] INSURANCE BILL Calcium 8.9 8.4 - 10.4 mg/dL [facility] INSURANCE BILL Protein Total 6.3(L) 6.4 - 8.3 gm/dL [facility] INSURANCE BILL Albumin 3.6 3.1 - 4.5 gm/dL [facility] INSURANCE BILL Bilirubin Total 0.2 0.2 - 1.2 mg/dL [facility] INSURANCE BILL Alkaline Phosphatase 46 40 - 150 U/L [facility] INSURANCE BILL AST 17 10 - 48 U/L [facility] INSURANCE BILL ALT 13 6 - 57 U/L [facility] INSURANCE BILL Blood BLOOD SPECIMEN / Unknown 10/18/2024 1:13 PM CDT 10/18/2024 Comment:Blood Release to pat i Narrative [facility] INSURANCE BILL - 10/18/2024 9:08 PM CDT Performed at: [address] [place] [address] [address] [place], [place] [id number] Desk Assistant: Harshil Montano Dr, Phone: [phone] Kunal Ramos MD LAB - CHEMISTRY ORDERABLES Final Result Performing Organization Address City/[facility]/ZIP Co de Phone Number [facility] INSURANCE BILL [address] [place] [address] * [facility] BLOOD (10/18/2024 1:13 PM CDT) Pathologist [facility] LDH 199 125 - 220 U/L [facility] INSURANCE BILL Blood BLOOD SPECIMEN / Unknown 10/18/2024 1:13 PM CDT 10/18/2024 Comment:Blood Release to pat i Narrative [facility] INSURANCE BILL - 10/18/2024 9:08 PM CDT Performed at: [address] [id number] Desk Assistant: Harshil Montano Dr, Phone: [phone] Kunal Ramos MD LAB - CHEMISTRY ORDERABLES Final Result Performing Organization Address [facility] Co de Phone Number [facility] INSURANCE BILL [address] [place] [address] * HEPATITIS SCREEN ACUTE ([facility]) (04/19/2024 9:31 AM CHURCH MUSICIAN) [facility] Hepatitis A Virus Antibody IgM Negative Negative [facility] INSURANCE BILL Comment: A negative anti-HAV IgM result suggests no recent or current HAV infection. Hepatitis B Virus Surface Antigen Negative Negative [facility] INSURANCE BILL Hepatitis B Core Virus Antibody IgM Negative Negative [facility] INSURANCE BILL Hepatitis C Antibody Non Reactive Non Reactive [facility] INSURANCE BILL Comment: Performed at: [address] [id number] Desk Assistant: Charlie Sahu PhD, Phone: [phone] Interpretation Comment [facility] INSURANCE BILL Comment: Not infected with HCV unless early or acute infection is suspected (which may be delayed in an immunocompromised individual), or other evidence exists to indicate HCV infection. Blood BLOOD SPECIMEN / Unknown 04/19/2024 9:31 AM CHURCH MUSICIAN 04/19/2024 Narrative [facility] INSURANCE BILL - 04/20/2024 6:10 AM CHURCH MUSICIAN Performed at: [address] [id number] Desk Assistant: Charlie Sahu PhD, Phone: [phone] Kassandra Landrum MD LAB - CHEMISTRY ORDERABLES Final Result [facility] INSURANCE BILL [address] [place] [address] * DEXA BONE DENSITY AXIAL SKELETON (01/08/2023 [...] Recently Relevant to Health Maintenance Insurance MEDICARE [facility] Advance Directives Documents on File Type Date Recorded Patient Wad Lubricator Expl anation Adv Directive/Living Will/POA 05/20/2021 POA Adv Directive/Living Will/POA 05/20/2021 POA * Full Code (Latest Code Status on File) Date Activated Date Inactivated Comments 11/13/2022 5:32 PM 11/14/2022 2:14 PM Care Teams Rf Manager Relationship Specialty Start Date End Date Tong Riggs MD [address] [place] [address] PCP - General Family Medicine 04/19/23
--- OUTSIDE RECORDS SUMMARY | 2024-12-08 09:39 | XMS_ITS ---
Author Organization [facility] Address [address] [facility] [place] [address] Care Team Providers Care Coagulant Dipper Name Role Phone Tong Riggs MD Primary Care Provider [phone] Active Problems Problem Noted Date Diagnosed Date Cigarette smoker 06/09/2022 Vitamin D deficiency, unspecified 06/09/2022 Osteopenia 11/28/2021 Malignant neoplasm of centra l portion of left breast in female, estrogen receptor positive 04/15/2021 Cancer Staging:Clinical stage from 03/12/2021:Stage 0(cTis (DCIS), cN0, cM0, ER+, CO+, HER2: Not Assessed) - Signed by Leona Suazo MD on 04/15/2021 Pathologic stage from 05/20/2021:Stage IA(pT1b, pN0(sn), cM0, G2, ER+, CO+, HER2: Equivocal) - Signed by Leona Suazo [...]
--- OUTSIDE RECORDS SUMMARY | 2024-12-08 09:39 | XMS_ITS | Clinical Summary ---
Author Organization [facility] Address [address] [place] [address] Care Team Providers Care Precision Optics Technician Name Role Phone Tong Riggs MD Primary Care Provider [phone] Matthieu Fortune MD PhD Unavailable [phone] Leona Suazo MD Unavailable [phone] Kunal Ramos MD Unavailable Carlos Crook MD [...] Units total) by mouth daily Active vitamins A,C,G-zjwg-pjwcsq (ICAPS) 4,296 mcg-226 mg-90 mg capsule Take 1 capsule by mouth daily Active senna-docusate (PERICOLACE) 8.6-50 mg Take 1 tablet by mouth 2 (two) times a day as needed for constipation 60 tablet 2 02/16/20 24 Active adalimumab (Humminnie,CF,) 20 mg/0.2 mL syringe kit 08/31/19 25 [...] (03/24/2022): Added automatically from request for surgery [id number] Nausea 03/24/2022 Overview (03/25/2022): Added automatically from request for surgery [id number] Heartburn 03/24/2022 Overview (03/25/2022): Added automatically from request for surgery [id number] Osteopenia 11/28/2021 Malignant neoplasm of lower- inner quadrant of left breast in female, estrogen receptor positive 07/30/2021 Cancer Staging:Pathologic stage from 07/30/2021:Stage IA(pT1b, pN0(sn), cM0, G2, ER+, WV+, HER2-, Oncotype DX score: 25) - Signed by Matthieu Fortune MD PhD on 07/30/2021 Pathologic stage from 11/23/2022: pN1a, cM0, ER+, WV+, HER2- - Signed by Matthieu Fortune MD PhD on 05/27/2023 Adenomatous polyp of ascending colon 02/14/2021 Overview (02/14/2021): Added automatically from request for surgery [id number] Encounter for screening colonoscopy 01/21/2021 Overview (01/21/2021): Added automatically from request for surgery [id number] Acute pancreatitis without infection or necrosis 01/15/2021 Overview (01/15/2021): Added automatically from request for surgery [id number] Resolved Problems Problem Noted Date Diagnosed Date Resolved Date Primary osteoarthritis of left hip 02/07/2024 04/10/2024 Encounters Date Type Department Care Team Description 10/17/2024 1:00 PM CDT Office Visit [facility] Gastroenterology [address] [place] [address] Medical Office Building [address] [address] Geraldine Lock PA Heartburn (Primary Dx); Gastroesophageal reflux disease, unspecified whether esophagitis present; Chronic gastric ulcer without hemorrhage and without perforation; Constipation, unspecified constipation type 10/08/2024 Results Follow-Up [facility] at [address] [place] [address] Eloise Valentin NP Urine culture Urine, clean voided 10/07/2024 8:32 AM CDT - 10/07/2024 11:59 PM CDT Hospital Encounter [address] [address] UTI symptoms Discharge Disposition: Discharge to home or self care 10/07/2024 8:30 AM CDT Office Visit [facility] at [address] [place] [address] Jerri Juarez NP UTI symptoms (Primary Dx) from Last 3 Months Surgical History Surgery Date Site/Laterality Comments UPPER GASTROINTESTINAL ENDOSCOPY COLONOSCOPY APPENDECTOMY 1982 CHOLECYSTECTOMY 1982 OOPHERECTOMY Right SALPINGECTOMY Left LAMINOPLASTY C3 to C8 BREAST BIOPSY BREAST LUMPECTOMY Left HYSTERECTOMY 1992 BUNIONECTOMY Bilateral CATARACT EXTRACTION Bilateral TOTAL HIP ARTHROPLASTY 02/16/2024 Left JOINT REPLACEMENT 02/16/2024 left hip SPINE SURGERY [id number] CATARACT EXTRACTION [id number] Medical History Medical History Date Comments Stress fracture Left foot GERD (gastroesophageal reflux disease) [id number] Cataract [id number] Pancreatitis 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 lower- inner quadrant of left breast in female, estrogen receptor positive (HCC) 07/30/2021 History of radiation therapy Gastroparesis Fibromyalgia Osteoarthritis Spinal stenosis PONV (postoperative nausea and vomiting) High triglycerides Breast CA (HCC) left Anemia Chronic constipation Multiple gastric ulcers Cholelithiasis Osteoporosis [id number] Family History Medical History Relation Name Comments [...] 2 - PCV) 01/30/2022 01/30/2021 Covid-19 Vaccine (5 - 2023-2 5 season) 2024 08/07/2021, 02/17/2021, 07/13/2020, Additional history exists Breast Cancer Screening-Mammogram 11/21/2024 11/22/2023, 11/22/2023, 10/12/2022, Additional history exists Influenza Vaccine (#1) 2025 Osteoporosis Screening-Bone Density Scan 01/08/2025 01/08/2023, 01/08/2023, 06/30/2021, Additional history exists Fall Risk Assessment 06/15/2025 06/15/2024, 02/07/20 Colon Cancer Screening-Colonoscopy 03/30/2032 03/30/2022, 03/17/2021, 02/12/2021, Additional history exists Medical Devices Implanted Type Area Concrete Polisher Device Identifier Shelf Expiration Date Model / Serial / Lot [employer] Shell Acetabular Hip Porous 3 Hole Coated Emphasys 50mm [id number] [id number] - [id number] Implanted:Qty: 1 on 02/16/2024 by Carlos Crook MD at [facility] Left: Hip [employer] [id number] 12/07/2033 [id number] / / [id number] [employer] Liner Acetabular Hip Standard Emphasys Aox 32g12ab Polyethylene [id number] - [id number] Implanted:Qty: 1 on 02/16/2024 by Carlos Crook MD at [facility] Left: Hip [employer] [id number] 12/07/2028 [id number] / / [id number] [employer] Actis 105mm Collar Hip 5 High Offset Stem Femoral [id number] - [id number] Implanted:Qty: 1 on 02/16/2024 by Carlos Crook MD at [facility] Left: Hip [employer] [id number] 11/06/2033 [id number] / / [id number] [employer] Articul/Wilton 36mm Cementless Hip +1.5mm 12/14 Taper Head Femoral Latex Free [id number] - [id number] Implanted:Qty: 1 on 02/16/2024 by Carlos Crook MD at [facility] Left: Hip [employer] [id number] 10/07/2028 [id number] / / [id number] Procedures Procedure Name Priority Date/Time Associated Diagnosis Comments POCT URINALYSIS DIPSTICK Routine 10/07/2024 8:39 AM CDT UTI symptoms URINE CULTURE Routine 10/07/2024 8:32 AM CDT UTI symptoms COLONOSCOPY 03/30/2022 1:45 PM CLEANER CARPET AND UPHOLSTERY from Last 3 Months or Most Recently Relevant to Health Maintenance Results * POCT urinalysis dipstick (10/07/2024 8:39 AM CDT) Color, Urine, POC Yellow Clarity, ur, POC Clear Clear Glucose, ur, POC Negative Negative Bilirubin, ur, POC Negative Negative Ketones, ur, POC Negative Negative Specific Belpre, POC 1.005 1.003 - 1.030 Blood, ur, POC Negative Negative pH, ur, POC 6.0 5.0 - 8.0 Protein, ur, POC Negative Negative Urobilinogen, urine, POC 0.2 0.2 - 1.0 mg/dL Nitrite, ur, POC Negative Negative Leukocytes, ur, POC Negative Negative Lot Number [id number] Urine 10/07/2024 8:39 AM CDT Jerri Juarez NP POINT OF CARE TEST BARTOLOME ALMEIDA Final Result * Urine culture Urine, clean voided (10/07/2024 8:32 AM CDT) Report Final Report: Less than 100,000 colonies/mL (clinically insignificant growth based on current clinical standards) Comment:Testing performed by : [facility], [address] [facility], [place]., [address] Organism (CLINICALLY INSIGNIFICANT GROWTH [facility] Urine, clean voided 10/07/2024 8:32 AM CDT 10/07/2024 6:23 PM CDT Narrative [facility] - 10/08/2024 7:25 PM CDT Testing performed by [facility] Microbiology Laboratory ([phone]) Jerri Hassan Larry FINAL FINISHER LAB MICROBIOLOGY - GENE RAL ORDERABLES Final Result [facility] [address] [facility] Department [place] [address] * COLONOSCOPY (03/30/2022 1:45 PM CLEANER CARPET AND UPHOLSTERY) Anatomical Region Laterality Modality Other Narrative Procedure Note Yeyo Hu MD - 03/30/2022 1:45 PM CST ENDOSCOPY LAB Patient Name: Latanya Dangelo Procedure Date: 03/30/2022 1:45 PM Admit Type: Outpatient Room: [facility] Date of : 1955 Instrument Name: [id number] [...] Recently Relevant to Health Maintenance Insurance MEDICARE [facility] [place] [address] MEDICARE COMMERCIAL GENERIC MEDICARE [facility] MEDICARE SUPPLEMENT Advance Directives For more information, please contact: [phone] * Full Code (Latest Code Status on [...] 8:56 AM 03/17/2021 3:05 PM Care Teams Precision Optics Technician Relationship Specialty Start Date End Date Tong Riggs MD PCP - General Family Practice 12/23/20 Matthieu Fortune MD PhD [address] [place] [address] Radiation Oncologist Radiation Oncology 07/30/21 Leona Suazo MD [address] [facility] SURGERY [facility], [place] [address] Consulting Physician General Surgery 07/30/21 Kunal Ramos MD [address] [address] Referring Physician Internal Medicine 07/30/21 Carlos Crook MD [address] [facility] [address] [address] Surgeon Orthopedic Surgery 02/16/24
--- OUTSIDE RECORDS SUMMARY | 2024-12-08 09:39 | XMS_ITS | Clinical Summary ---
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 Gender Identity Not on file Sexual Orientation [...] (2 of 2 - PCV) 01/30/2022 01/30/2021 SARS-COV-2 Immunization ( - 2023- season) 2024 01/31/2022, 08/07/2021, 02/17/2021, Additional history exists Influenza Immunization (#1) 2025 Colonoscopy 03/30/2032 03/30/2022 Colorectal Cancer Screening 03/30/2032 DEXA Bone Density Discontinued 06/30/2021 Mammogram Discontinued 10/14/2022, 0609/2022, 10/12/2022, Additional history exists Hepatitis B Immunization Aged Out No longer [...] this topic Medical Devices Implanted Type Area Insurance Actuary Device Identifier Shelf Expiration Date Model / Serial / Lot [employer] Prostep Ana Maria Screw 4mm X 48mm Implanted:Qty: 1 on 07/16/2022 by Jocelyn Christianson DPM at [facility] Right: Toe [employer] 11/27/2028 [id number] / [id number] / [id number] [employer] Prostep Ana Maria Screw 3mm X 36mm Implanted:Qty: 1 on 07/16/2022 by Jocelyn Christianson, DPM at [facility] Right: Toe [employer] 06/15/2030 [id number] / [id number] / [id number] [employer] Prostep Ana Maria Screw 3mm X 28mm Implanted:Qty: 1 on 07/16/2022 by Jocelyn Christianson, DPM at [facility] Right: Toe [employer] 03/21/2029 [id number] / [id number] / [id number] Young Large Phalnix Implant Implanted:Qty: 1 on 07/16/2022 by Jocelyn Christianson, DPM at [facility] Right: Toe YOUNG [id number] / [id number] / [id number] Young 0.9mm K Wire Implanted:Qty: 1 on 07/16/2022 by Jocelyn Christianson, DPM at [facility] Right: Toe YOUNG [id number] / [id number] / [id number] Description:SECOND DIGIT, RI GHT FOOT Prostep Ana Maria Screw 4mm X 52mm Implanted:Qty: 1 on 10/29/2022 by Jocelyn Christianson, DPM at [facility] Left: Foot 08/18/2029 [id number] / [id number] / [id number] Description:[employer] Prostep Ana Maria Screw Implanted:Qty: 1 on 10/29/2022 by Jocelyn Christianson, DPM at [facility] Left: Foot 05/22/2030 [id number] / [id number] / [id number] Phalinx Implanted:Qty: 1 on 10/29/2022 by Jocelyn Christianson, DPM at [facility] Left: Foot [id number] / [id number] / [id number] Prostep Ana Maria Screw 3mm X 48mm Implanted:Qty: 1 on 10/29/2022 by Jocelyn Christianson DPM at [facility] Left: Foot 12/01/2029 [id number] / [id number] / [id number] Description:[employer] Explanted Type Area Insurance Actuary Device Identifier Shelf Expiration Date Model / Serial / Lot Young 1.4mm K Wire Explanted:Qty: 1 on 07/16/2022 at [facility] Right: Toe YOUNG [id number] / [id number] / [id number] [place] 1.4mm K Wire Explanted:Qty: 1 on 07/16/2022 at [facility] Right: Toe YOUNG [id number] / [id number] / [id number] Young 0.9mm K Wire Explanted:Qty: 1 on 07/16/2022 at [facility] Right: Toe YOUNG [id number] / [id number] / [id number] Insurance MEDICARE Member Subscriber Plan / Payer (Ef fective 2019-Present) Name:Latanya Dangelo Member ID:[id number] Relation to Subscriber:Self Name:Latanya Dangelo Subscriber ID:[id number] Payer ID:[id number] Group ID:Not on file Type:Not on file Address: [facility] [address] [facility] Hot Potato [facility], [facility] [place] [address] [facility] Care Teams Human Resources Benefits Coordinator Relationship Specialty Start Date End Date Tong Riggs MD [address] [place] [address] PCP - General Family Medicine 06/26/22
--- OUTSIDE RECORDS SUMMARY | 2024-12-08 09:39 | XMS_ITS | Continuity of Care Document ---
Author Organization [facility] Address [address] [facility] [place] [address] [address] Phone Care Team Providers Care Pump Rebuilder Name Role Phone No Information Unavailable Unavailable Allergies, Adverse Reactions, Alerts Substance Reaction Status Criticality Iodinated Contrast Media Active No Information PENICILLIN Active No Information Sulfa (Sulfonamide Antibiotics) Active No Information Medications Medication Instructions Dosage Effective Dates (start - stop) Status Comments Prolia 60 mg/mL subcutaneous syringe inject 1 milliliter by subcutaneous route every 6 months in the upper arm, upper thigh or abdomen 60 MG - Active tamoxifen 20 mg tablet take 1 tablet by oral route every day 20 MG - Active oxycodone-acetaminop hen 5 mg-300 mg tablet take 1 tablet by oral route every 6 hours as needed for pain 1.00 tablet - Active temazepam 30 mg capsule take 1 capsule by oral route every day at bedtime as needed 30 MG - Active Lyrica 50 mg capsule take 1 capsule by oral route 2 times every day 50 MG - Active tizanidine 4 mg tablet take 1 tablet by oral route every 6 - 8 hours as needed not to exceed 3 doses in 24 hours 4 MG - Active ondansetron HCl 8 mg tablet take 1 tablet by oral route 2 times every day 8 MG - Active oxycodone-acetaminop hen 5 mg-325 mg tablet take 1 tablet by oral route every 6 hours as needed 1.00 tablet - Active Protonix 40 mg tablet,delayed release take 1 tablet by oral route 2 times every day 40 MG - Active famotidine 10 mg tablet take 1 tablet by oral route every day as needed 10 MG - Active Procedures Procedure Date Fundus Photography W/ Report No Charge Refraction Eye Exam & Treatment Fundus Photography W/ Report Eye Exam, New Patient Advance Directives Directive Yes / No Effective Date File Name No Information Encounters Encounter Description Practice Location Reason(s) For Visit Diagnoses Date Provider Providers Copied on [facility]counter [facility], [address] [place] [address] [address], [place], [place], [id number], [phone] SEC Lu[place] Professional No Information 5 No Information [facility], [facility] [address] [facility], [place], [place], [id number], [phone] SEC [place] Professional Complete Exam (chief complaint) Dry eye syndrome of bilateral lacrimal glandsMeibomi an gland dysfunction (MGD), bilateral, both upper and lower lidsMeibomian gland dysfunction left eye, upper and lower eyelidsPresen ce of intraocular lensPuckering of macula, right eye 4 Lani OD Elayne. [address] [place] [address], [address], [place], [place], [id number], . tel:[phone] Referring Provider: Brett Rinaldi, [address] [address], [place], [address] . tel:[phone] [facility], [address] [place] [address] [address], [place], [place], [id number], tel:[phone] SEC Lu[place] Professional Complete Exam (chief complaint) Puckering of macula, right eyePresence of intraocular lensDry eye syndrome of bilateral lacrimal glandsMeibomi an gland dysfunction (MGD), bilateral, both upper and lower lidsMeibomian gland dysfunction left eye, upper and lower eyelids 2 Yahir [place]. [address] [facility], [address] [place], [place], [id number], [place]. tel:[phone] Referring Provider: Brett Rinaldi, [address] [facility] [address], [place], [address] . tel:[phone] [facility], [address] [address], [place], [place], [id number], [place] tel:[phone] SEC Luiz BRIJESH Professional No Information Yahir [place]. [address] [facility], [address], [place], [place], [address], [place]. tel:[phone] Family History Family Member Type Diagnosis Age At Onset Problem Family history of Glaucoma Payers Payer name Insurance type Covered green party ID Authoriza tion(s) No Information Social History Type Description Quantity Date Captured Comments Sex Female Smoking Status No Information Chief Complaint And Reason For Visit No Information Reason For Referral Reason For Referral No Information Plan Of Treatment Date Type Action Status Goal Tobacco cessation counseling completed Goal Tobacco cessation counseling completed Goal Tobacco cessation counseling completed Patient Education Dry Eyes: Care Instruct ions completed Patient Education Dry Eyes: Care Instruct ions completed History Of Present Illness Encounter Date Complaint History Of Prese nt Illness Complete Exam The 68 year old patient presents for evaluation of Complete Exam in the right eye and left eye. Pt states that around last year they noticed a lump around their breast and pt found out that they had Breast Cancer again. Pt had surgery in November and pt did Chemo from -Mar. Pt then ended up going through radiation Jun of this year till the end of July and towards the end of Radiation therapy Pt started noticing OS twitching a couple times a day pretty consistently since. Pt states that OS has felt really dry ever since radiation. Pt does use Refresh but not very often. Pt states that one day after Radiation they noticed OS vision was not very good but states that it got better a couple hours later. Complete Exam The 67 year old patient presents for evaluation of Complete Exam in the right eye and left eye. Pt reports she is not having any problems with OU. Pt reports she uses AFT PRN. Pt reports she was Dx w/Breast cancer. Functional Status Date Functional Assessmen t No Information Instructions Date Instruction Additional Infor matileana Impression/Plan Impression/Plan Assessments Type Assessment Date No Information Patient Care Teams Name Effective Dates (start - stop) Status Members No Information
== END 2024-12-08 09:35 | disposition home or self-care (01) ==
PROVIDERS: PCP Family Medicine; Visit Provider Family Medicine
DX: Z13.820 Encounter for screening for osteoporosis (principal); Z78.0 Asymptomatic menopausal state
CPT/HCPCS: 77080